=== PATIENT | male | born 1940 | race Caucasian/White ===

== ENCOUNTER 2020-09-27 11:22 | Inpatient (IN) ==
[2020-09-27] MEDS ORDERED: SODIUM CHLORIDE 0.9% 500 ML IV ONE (12:20)
[2020-09-27] MEDS ORDERED: ONDANSETRON INJ 2 MG/ML 2 ML VIAL IV STA (12:20)
[2020-09-27 12:27] LABS: Basophils # (auto) 0.03 K/uL (0-0.2); Basophils % (auto) 0.3 %; Eosinophils # (auto) 0.13 K/uL (0-0.5); Eosinophils % (auto) 1.1 %; Hematocrit (blood only) 36.5 % (42-52); Hemoglobin 12.1 g/dL (14.0-18.0); Immature Granulocytes # (auto) 0.02 K/uL (0.00-0.02); Immature Granulocytes % (auto) 0.2 %; Lymphocytes # (auto) 0.85 K/uL (1.2-3.4); Lymphocytes % (auto) 7.5 %; Mean Corpuscular Hemoglobin 31.6 pg (25-34); Mean Corpuscular Hgb Conc 33.2 g/dL (32-36); Mean Corpuscular Volume 95.3 fL (80-100); Mean Platelet Volume 10.9 fL (7.4-10.4); Monocytes # (auto) 0.88 K/uL (0.11-0.59); Monocytes % (auto) 7.8 %; Neutrophils # (auto) 9.44 K/uL (1.4-6.5); Neutrophils % (auto) 83.1 %; Platelet Count 312 K/uL (130-400); RDW Coefficient of Variation 13.8 % (11.5-14.5); Red Blood Count 3.83 M/uL (4.7-6.1); White Blood Count 11.35 K/uL (4.8-10.8)
[2020-09-27 12:36] LABS: Alanine Aminotransferase 20 U/L (12-78); Albumin Level 4.1 gm/dl (3.4-5.0); Aspartate Aminotransferase 17 U/L (15-37); Blood Urea Nitrogen 40 mg/dl (7-18); Carbon Dioxide 26 mmol/L (21-32); Chloride 108 mmol/L (98-107); Creatinine Clr Calc Pharmacy 34.3 ml/min; Est GFR (African American) 72.8 ml/min; Est GFR (Non-African American) 62.8 ml/min; Glucose 91 mg/dl (70-99); Lipase 154 U/L (73-393); Potassium 3.9 mmol/L (3.5-5.1); Sodium 145 mmol/L (136-145)
[2020-09-27 12:43] LABS: Alkaline Phosphatase 89 U/L (45-117); Creatine Kinase 68 U/L (39-308); Creatine Kinase MB < 1.0 ng/ml (0.5-3.6); Total Protein 8.1 gm/dl (6.4-8.2); Troponin I < 0.015 ng/ml (0-0.045)
[2020-09-27 13:02] LABS: Partial Thromboplastin Ratio 0.9; Partial Thromboplastin Time 23.5 Seconds (21.0-31.0)
--- NOTE | 2020-09-27 13:04 | XRay Report ---
XR femur RT 2V routine CLINICAL HISTORY: Right hip pain. COMPARISON: Pelvis and right hip radiographs July 07, 2020. FINDINGS: No acute fracture within the right femur is noted. There is no right knee joint effusion. There is no osseous lesion within the right femur. Mild to moderate osteoarthritis of the right hip i s present. IMPRESSION: 1. No acute fracture within the right femur. 2. Mild to moderate right hip osteoarthritis. ACT 112: Negative or not required by law. Electronically signed by: Thien Molina M.D. 09/27/2020 1:03 PM
--- NOTE | 2020-09-27 13:04 | XRay Report ---
XR chest 1V portable CLINICAL HISTORY: Chest Pain COMPARISON STUDY: No previous studies for comparison. FINDINGS: Lung volumes are normal. Lungs are clear. There is no pneumothorax or pleural effusion. Car diac size is normal. Mediastinal contours are normal. There is no evidence for pulmonary edema. Incid ental note is made of old bilateral clavicular fractures and multiple old right rib fractures. There are median sternotomy wires and mediastinal surgical clips. IMPRESSION: No acute cardiopulmonary findings. ACT 112: Negative or not required by law. Electronically signed by: Thien Molina M.D. 09/27/2020 1:03 PM
[2020-09-27] MEDS ORDERED: OPTIRAY 320 100ml IV ONE (13:12)
--- NOTE | 2020-09-27 13:35 | Electrocardiogram Report ---
Test Reason : Blood Pressure : / mmHG Vent. Rate : 089 BPM Atrial Rate : 089 BPM P-R Int : 170 ms QRS Dur : 128 ms QT Int : 386 ms P-R-T Axes : 061 -50 077 degrees QTc Int : 469 ms Normal sinus rhythm Right bundle branch block Left anterior fascicular block Bifascicular block Abnormal ECG No previous ECGs available Confirmed by Kushal Shelton ([id number]) on 09/27/2020 1:35:37 PM Referred By: REFERRED SELF Confirmed By:Kushal Shelton
--- NOTE | 2020-09-27 13:52 | CT Scan Report ---
CT OF THE HEAD WITHOUT CONTRAST CLINICAL HISTORY: Pt emesis COMPARISON STUDY: Head CT September 04, 2020. TECHNIQUE: Helical axial images of the head were obtained without IV contrast. Automated exposure con trol was utilized for the study. A dose lowering technique was utilized adhering to the principles o f ALARA. FINDINGS: No acute intracranial hemorrhage, midline shift or mass effect is present. Ventricular dila tation is unchanged since exam of September 02, 2020. This is likely due to atrophy. Basal cisterns are pa tent. There are nodular axial collections. White matter hypodensity suggests small vessel disease. A 1.2 cm hypodensity within left basal ganglia is unchanged. This could reflect a prominent perivascula r space or old lacunar infarct. The appearance of the brain is unchanged. There are no findings to horton ggest acute dural sinus thrombosis or acute territorial infarct. There are no significant calvarial a bnormalities. There is mild sinus mucosal thickening. IMPRESSION: 1. No acute intracranial findings. No change in appearance of the brain. 2. Stable ventricular dilatation. This is likely due to atrophy. Normal pressure hydrocephalus is con sidered less likely. ACT 112: Negative or not required by law. Electronically signed by: Thien Molina M.D. 09/27/2020 1:51 PM
--- NOTE | 2020-09-27 14:23 | CT Scan Report ---
CT OF THE ABDOMEN AND PELVIS WITH CONTRAST CLINICAL HISTORY: Pt emesis COMPARISON STUDY: None. TECHNIQUE: Following IV administration of 94 mL of Optiray, axial images of the abdomen and pelvis we re obtained from the lung bases to the proximal femurs. Images were reviewed in the axial, sagittal, and coronal planes. IV contrast was administered without complication. Automated exposure control wa s utilized for the study. A dose lowering technique was utilized adhering to the principles of ALARA . CT DOSE: 811.43 mGy.cm FINDINGS: Note is made of a small hiatal hernia. Visualized portions of the distal esophagus are flu id-filled. There is apparent wall thickening of the distal esophagus. This could be due to underdiste ntion. Exam is compromised by motion artifact. There is a possible mildly enlarged gastrohepatic liga ment lymph node that measures 1.5 cm. Multiple small hypodense hepatic lesions measure up to 1.1 cm. The spleen, adrenal glands and kidneys are unremarkable as is the pancreas. There is no biliary or pa ncreatic ductal dilatation. There is no hydronephrosis. There is extensive plaque of the abdominal ao rta. There is no evidence for a bowel obstruction. A moderate amount stool is noted within the colon and rectum. The appendix is normal. There is no pelvic lymphadenopathy. Note is made of old T12 and L 1 compression fractures. Note is made of serpiginous multifocal enhancement within the right gluteus medius muscle. The largest focus measures 4 cm. There is also a 1.2 cm enhancing focus within the lef t gluteal musculature. IMPRESSION: 1. Small hiatal hernia with fluid-filled distended distal esophagus. Possible wall thickening of the distal esophagus. GI consultation is recommended for consideration for endoscopy to exclude an underl chandler mucosal lesion. 2. Exam compromised by motion artifact however possible mildly enlarged gastrohepatic ligament lymph node. In addition, multiple small indeterminate hepatic lesions. These findings are nonspecific babcock katherine are suspicious if distal esophageal lesion identified on endoscopy. 3. Multifocal enhancement within the bilateral gluteal musculature, as described above. These finding s are entirely nonspecific and could be neoplastic. A short-term follow-up CT of the pelvis with cont rast in one month is recommended. ACT 112: Positive. There are findings on this exam that require communication between the performing entity and the patient following Patient Test Result Information Act ([place] Act 112) guidelines. Electronically signed by: Thien Molina M.D. 09/27/2020 2:22 PM
[2020-09-27] MEDS ORDERED: METOCLOPRAMIDE HCL INJ 5 MG/ML 2 ML VIAL IV STA (14:59)
[2020-09-27] MEDS ORDERED: NITROGLYCERIN 2% OINTMENT 30GM TUBE EXT STA (14:59)
[2020-09-27] MEDS ORDERED: GLUCAGON 1 MG in SYRINGE 0 ML IV ONE (14:59)
[2020-09-27] MEDS ORDERED: GLUCAGON FOR INJ 1 MG VIAL IV STA (15:53)
--- NOTE | 2020-09-27 15:59 | History & Physical Report ---
Date of Service September 27, 2020 Assessment & Plan (1) Esophageal dysmotility: Plan: Patient has inability to take p.o. at home. CT scan shows esophagus full of food. Medical attempts to promote any disimpaction were unsuccessful including glucagon. GI medicine was consulted recommends have the patient admitted kept n.p.o. with likely endoscopy on 09/28/2020. IV fluids and intravenous proton pump inhibitor (2) Dementia: Plan: Patient typically takes memantine, will be npo offering prn zyprexa (3) Prostate cancer: Plan: extent is unknown, there is some comment on CT of gluteal muscle ? mass, (4) GERD (gastroesophageal reflux disease): Plan: Recently changed from omeprazole to pantoprazole this likely may explain some of the findings on CT scan however mucosal mass cannot be ruled out subsequently endoscopy be undertaken (5) CAD (coronary artery disease): Plan: Patiently typically takes aspirin metoprolol and atorvastatin (6) DVT prophylaxis: Plan: SCDs for DVT prevention History of Present Illness Primary Care Provider: Jonathon Jain, DO 80 M with dementia, lives with daughter, has been with increased lethargy and decreased po intake, in the ER CT chest finds fluid/food filled esophagus with concern for possible esophageal thickening, there is also comments on the CT scan of a possible mildly enlarged gastrohepatic ligament lymph node that measures 1.5 cm. Multiple small hypodense hepatic lesions measure up to 1.1 cm. The spleen, adrenal glands and kidneys are unremarkable as is the pancreas. There is no biliary or pancreatic ductal dilatation. There is no hydronephrosis. Note is made of serpiginous multifocal enhancement within the right gluteus medius muscle. The largest focus measures 4 cm. There is also a 1.2 cm enhancing focus within the left gluteal musculature. The pts daughter notes he had prostate cancer some years ago, but thinks it s all taken care of, he has been having right hip pain, which may correlate with mass Allergies Allergy/AdvReac Type Severity Reaction Status Date / Time No Known Allergies Allergy Verified 09/27/20 14:29 Home Medications Medication Instructions Recorded Confirmed Type aspirin 81 mg chewable tablet 81 mg PO PM 07/02/20 09/27/20 History atorvastatin 40 mg tablet 40 mg PO PM 07/02/20 09/27/20 History metoprolol tartrate 25 mg tablet 25 mg PO PM 07/02/20 09/27/20 History memantine 5 mg tablet 5 mg PO BID 09/24/20 09/27/20 History pantoprazole 40 mg tablet,delayed 40 mg PO QAM 09/27/20 09/27/20 History release Past Med/Surg History Medical History CAD (coronary artery disease) GERD (gastroesophageal reflux disease) Glaucoma Hypercholesteremia Prostate cancer Surgical History History of quadruple bypass Family History Denies family history of Ovarian cancer Prostate cancer Myocardial infarction Breast cancer Colorectal cancer Social History Smoking Status: Never smoker Second Hand Exposure: Yes; Hx Alcohol Use: Yes Alcohol type: beer Alcohol Intake Frequency: Monthly or Less Hx Substance Use: No Preferred Language: Lithuanian Communication Ability: Effective Visual Impairment: No Limitations Hearing Ability: Normal 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 marital status: / Current Living Situation: Family current occupational status: retired How many Children do You have: 3 Feels Safe at Home: Yes Childhood Exposure to Second-Hand Smoke: Yes caffeine: Yes during the past year weight has: remained stable Dental Care, Regularly: No Physical Activity Frequency: 5-6 Times per Week Seatbelt Use: sometimes Sunscreen Use: No Assistive Devices: Denture - Upper, Denture - Lower and Glasses Review of Systems Review of Systems: Mild distress and fatigue no headache, no visual changes no speech or swallowing issues no chest pain, pressure or palpitations no shortness of breath, cough or wheezes no abdominal pain, nausea or vomiting, diarrhea or constipation no dysuria, hematuria or frequency right hip pain has been issue, non radiating no back pain, CVA tenderness or radicular pain no bruising, bleeding or rashes no focal signs of weakness or numbness or altered sensation no complaints of anxiety or depression.. Physical Exam Physical Exam: The patient appeared well nourished and normally developed. he is demented Vital signs as documented. Head exam is normocephalic atraumatic Neck is without JVD, thyromegaly, or carotid bruits. Lungs are clear to auscultation, no focal loss of breath sounds Cardiac exam, Rhythm is regular.. No murmurs, rubs or gallops. Abdominal exam reveals normal bowel sounds, soft non tender, no masses Extremities are nonedematous and both pedal pulses are present there is no mass able to be palpated to correlate with Ct findings Neurologic exam is alert and oriented, no focal loss of strength or sensation Skin is without bruises or rashes Psychologically is without concerns for anxiety or depression Results & Data Results & Data ([facility] [place]) Vital Signs (Past 12 Hours) Vital Signs Temp Pulse Pulse Resp BP BP Pulse Ox 09/27/20 11:52 82 20 141/81 H 99 09/27/20 11:50 63 15 141/81 H 99 09/27/20 11:23 97.7 F 106 H 20 129/76 93 Diagnostic Findings Abdomen/Pelvis CT 09/27/20 12:19 CT OF THE ABDOMEN AND PELVIS WITH CONTRAST CLINICAL HISTORY: Pt emesis COMPARISON STUDY: None. TECHNIQUE: Following IV administration of 94 mL of Optiray, axial images of the abdomen and pelvis were obtained from the lung bases to the proximal femurs. Images were reviewed in the axial, sagittal, and coronal planes. IV contrast was administered without complication. Automated exposure control was utilized for the study. A dose lowering technique was utilized adhering to the principles of ALARA. CT DOSE: 811.43 mGy.cm FINDINGS: Note is made of a small hiatal hernia. Visualized portions of the distal esophagus are fluid-filled. There is apparent wall thickening of the distal esophagus. This could be due to underdistention. Exam is compromised by motion artifact. There is a possible mildly enlarged gastrohepatic ligament lymph node that measures 1.5 cm. Multiple small hypodense hepatic lesions measure up to 1.1 cm. The spleen, adrenal glands and kidneys are unremarkable as is the pancreas. There is no biliary or pancreatic ductal dilatation. There is no hydronephrosis. There is extensive plaque of the abdominal aorta. There is no evidence for a bowel obstruction. A moderate amount stool is noted within the colon and rectum. The appendix is normal. There is no pelvic lymphadenopathy. Note is made of old T12 and L1 compression fractures. Note is made of serpiginous multifocal enhancement within the right gluteus medius muscle. The largest focus measures 4 cm. There is also a 1.2 cm enhancing focus within the left gluteal musculature. IMPRESSION: 1. Small hiatal hernia with fluid-filled distended distal esophagus. Possible wall thickening of the distal esophagus. GI consultation is recommended for consideration for endoscopy to exclude an underlying mucosal lesion. 2. Exam compromised by motion artifact however possible mildly enlarged gastrohepatic ligament lymph node. In addition, multiple small indeterminate hepatic lesions. These findings are nonspecific however are suspicious if distal esophageal lesion identified on endoscopy. 3. Multifocal enhancement within the bilateral gluteal musculature, as described above. These findings are entirely nonspecific and could be neoplastic. A short- term follow-up CT of the pelvis with contrast in one month is recommended. ACT 112: Positive. There are findings on this exam that require communication between the performing entity and the patient following Patient Test Result Information Act ([place] Act 112) guidelines. Electronically signed by: Thien Molina M.D. 09/27/2020 2:22 PM Chest X-Ray 09/27/20 12:19 XR chest 1V portable CLINICAL HISTORY: Chest Pain COMPARISON STUDY: No previous studies for comparison. FINDINGS: Lung volumes are normal. Lungs are clear. There is no pneumothorax or pleural effusion. Cardiac size is normal. Mediastinal contours are normal. There is no evidence for pulmonary edema. Incidental note is made of old bilateral clavicular fractures and multiple old right rib fractures. There are median sternotomy wires and mediastinal surgical clips. IMPRESSION: No acute cardiopulmonary findings. ACT 112: Negative or not required by law. Electronically signed by: Thien Molina M.D. 09/27/2020 1:[address] 09/27/20 12:19 CT OF THE HEAD WITHOUT CONTRAST CLINICAL HISTORY: Pt emesis COMPARISON STUDY: Head CT September 04, 2020. TECHNIQUE: Helical axial images of the head were obtained without IV contrast. Automated exposure control was utilized for the study. A dose lowering technique was utilized adhering to the principles of ALARA. FINDINGS: No acute intracranial hemorrhage, midline shift or mass effect is present. Ventricular dilatation is unchanged since exam of September 02, 2020. This is likely due to atrophy. Basal cisterns are patent. There are nodular axial collections. White matter hypodensity suggests small vessel disease. A 1.2 cm hypodensity within left basal ganglia is unchanged. This could reflect a prominent perivascular space or old lacunar infarct. The appearance of the brain is unchanged. There are no findings to suggest acute dural sinus thrombosis or acute territorial infarct. There are no significant calvarial abnormalities. There is mild sinus mucosal thickening. IMPRESSION: 1. No acute intracranial findings. No change in appearance of the brain. 2. Stable ventricular dilatation. This is likely due to atrophy. Normal pressure hydrocephalus is considered less likely. ACT 112: Negative or not required by law. Electronically signed by: Thien Molina M.D. 09/27/2020 1:51 PM Femur X-Ray 09/27/20 12:43 XR femur RT 2V routine CLINICAL HISTORY: Right hip pain. COMPARISON: Pelvis and right hip radiographs July 07, 2020. FINDINGS: No acute fracture within the right femur is noted. There is no right knee joint effusion. There is no osseous lesion within the right femur. Mild to moderate osteoarthritis of the right hip is present. IMPRESSION: 1. No acute fracture within the right femur. 2. Mild to moderate right hip osteoarthritis. ACT 112: Negative or not required by law. Electronically signed by: Thien Molina M.D. 09/27/2020 1:03 PM ECG Additional Comments: EKG shows normal sinus rhythm right bundle branch block Code Status & VTE Plan VTE Prophylaxis Plan VTE Prophylaxis will be ordered: Yes PG Care Time/CCT Total # of Minutes Spent Total Time Spent with Patient: Total time spent is greater than 50% in coordination of care (as documented) at patient's floor/unit and/or counseling patient: Coding Level of Care Code 17850 Initial Inpt Care Lvl 2 Diagnoses Dementia F03.90 Prostate cancer C61 GERD (gastroesophageal reflux disease) K21.9 CAD (coronary artery disease) I25.10 Esophageal dysmotility K22.4 DVT prophylaxis Z29.9
[2020-09-27] MEDS ORDERED: LORazepam 0.5 MG/1 ML VIAL IV PRN (16:01)
[2020-09-27] MEDS ORDERED: hydrALAZINE HCL 20 MG/ML VIAL IV PRN (16:01)
[2020-09-27] MEDS ORDERED: ONDANSETRON INJ 2 MG/ML 2 ML VIAL IV PRN (16:02)
[2020-09-27] MEDS ORDERED: OLANZapine ZYDIS 5 MG ORALLY DIS. TAB PO PRN (16:02)
--- NOTE | 2020-09-27 19:05 | Emergency Department Note ---
Impression & Plan Esophageal dysmotility, Dementia, Acute hip pain ED Provider Note NAME: TIM GREGORIO AGE: 80 SEX: M : 1940 ARRIVES VIA: Walk-In INFORMANT: Patient, gleason gear generator ED PROVIDER(S): Kavon Rodriguez MD CHIEF COMPLAINT: vomiting, hip pain HPI: This is a 80-year-old male brought in by his gleason gear generator. The patient's care gleason gear generator is his step granddaughter. She reports that the patient has a history of dementia and has been increasingly difficult to take care of. She reports over the last several days the patient has been unable to keep anything down including fluids or any food. The patient immediately vomits it back up. He has also not been able to keep down any of his medications. In addition to this the patient will not stop walking and [place] police. The patient himself has no complaints however does not know where he is and does not know the month. Patient reports his hip pain is made worse with walking however rest makes the hip better. ROS: See above HPI for pertinent positives & negatives. A total of 10 systems reviewed and were otherwise negative. PAST MEDICAL HISTORY: See Below PAST SURGICAL HISTORY: See Below FAMILY HISTORY: See Below SOCIAL HISTORY: See Below HOME MEDICATIONS: See Below ALLERGIES: See Below VITALS: See Below PHYSICAL EXAMINATION: VITAL SIGNS - Vital signs and nursing notes were reviewed. GENERAL - 80-year-old male appearing stated age who is in no acute distress. C ommunicates well with provider and answers questions appropriately. SKIN - Without rashes. HEAD - NC/AT. EYES - PERRL with EOMI bilaterally. Sclera anicteric. Palpebral conjunctiva pink and moist with no injection noted. EARS - No deformities of external structures noted on gross examination marcella aterally. NOSE - Midline and without cyanosis. No epistaxis or purulent drainage noted. Septum midline without deviation or septal hematoma noted. MOUTH/OROPHARYNX - Without perioral cyanosis. Buccal mucosa pink and moist and without leukoplakia. Tongue midline with equal elevation of palate bilaterally. No tonsillar hypertrophy, erythema, or exudates noted. NECK - Neck with FROM. Supple to palpation. LUNGS - Chest wall symmetric without accessory muscle use, intercostals retractions, or central cyanosis. Normal vesicular breath sounds CTA B/L. No wheezes, rales, or rhonchi appreciated. CARDIAC - RRR with S1/S2. No murmur, rubs, or gallops appreciated. ABDOMEN - Abdominal contour without pulsations or visible masses. BS normoactive all four quadrants. No tenderness, palpable masses, hepatosplenomegaly, or ascites noted. EXTREMITIES - No clubbing or peripheral cyanosis. No pretibial edema present. +3/5 radial, posterior tibial, and dorsalis pedis pulses palpated throughout. +5/5 strength noted in UE/LE bilaterally. NEUROLOGIC - Cranial nerves II through XII grossly intact. Sensory intact to light touch throughout. Patellar reflexes +2/4. PSYCH - A&Ox3 and cooperates fully with examiner. Pt is very pleasant and interacts well with examiner. MEDICAL DECISION MAKING: Patient was seen and evaluated as above in room B4. Review was performed of nursing notes and vital signs. I did review pertinent previous visits and patient history. After obtaining a thorough history and physical examination the above work up was performed. This 80-year-old male who presents emergency department complaining of vomiting up his own saliva. Patient using shared medical decision making the decision was made to send the patient for CAT scan of the head as well as abdomen pelvis. The CAT scan of the abdomen pelvis is concerning for a fluid-filled esophagus. Based on this the patient was given IV glucagon Nitropaste as well as Reglan and Valium. I did discuss the case with gastroenterology who asked that the patient be admitted to the medicine service. The patient does have a slight elevation in his white blood cell count however his BUN and creatinine appear to be at the baseline. While in the department, I personally reevaluated the patient several times and each time the patient was found to be resting comfortably. The patient was educated upon management, educated upon todays findings/results, educated upon importance of follow up from today's visit, educated upon symptoms in which to return, had questions answered prior to discharge, verbalized understanding, and was discharged home in good condition. An order was placed for continuous cardiac monitoring. The monitor shows a rate of 62 with Normal SInus rhythm. The patient was evaluated during a period of high volume and high acuity during the global COVID-19 pandemic, and that diagnosis was suspected/considered upon their initial presentation. Their evaluation, treatment and testing was consistent with current guidelines for patients who present with complaints or symptoms that may be related to COVID-19. Patient was seen while provider was wearing PPE. Triage Nursing notes reviewed. Prior medical records reviewed Vital Signs: reviewed and remarkable for no significant abnormalities Differential diagnosis: Appendicitis, testicular torsion, infections, diverticulitis, UTI, obstruction, mesenteric ischemia, aortic pathology, inflammatory bowel disease, renal colic, PUD, pancreatitis, biliary pathology, hernia, volvulus, constipation, as well as other pathologies. ER treatment provided: See below Diagnostics interpreted by me: ECG: EKG shows a normal sinus rhythm right bundle branch block bifascicular block QTC is 469 ventricular rate is 89 no previous EKG to compare to Laboratory studies: As stated above and show below. Imaging studies: See below Consultation(s): GI Internal Medicine Past Med/Surg History Medical History CAD (coronary artery disease) GERD (gastroesophageal reflux disease) Glaucoma Hypercholesteremia Prostate cancer Surgical History History of quadruple bypass Family History Denies family history of Ovarian cancer Prostate cancer Myocardial infarction Breast cancer Colorectal cancer Social History Smoking Status: Never smoker Second Hand Exposure: No; Hx Alcohol Use: Yes (occ) Alcohol type: beer Alcohol Intake Frequency: Monthly or Less Hx Substance Use: No Preferred Language: Uzbek Communication Ability: Effective Visual Impairment: No Limitations Hearing Ability: Normal Trace Clerk Required: No Beliefs That Will Affect Care: None marital status: / Current Living Situation: Family current occupational status: retired How many Children do You have: 3 Feels Safe at Home: Yes Childhood Exposure to Second-Hand Smoke: Yes caffeine: Yes during the past year weight has: remained stable Dental Care, Regularly: No Physical Activity Frequency: 5-6 Times per Week Seatbelt Use: sometimes Sunscreen Use: No Assistive Devices: Denture - Upper and Denture - Lower Allergies Allergies Allergy/AdvReac Type Severity Reaction Status Date / Time No Known Allergies Allergy Verified 09/27/20 14:29 Home Meds Home Medications Medication Instructions Recorded Confirmed aspirin 81 mg chewable tablet 81 mg PO PM 07/02/20 09/27/20 atorvastatin 40 mg tablet 40 mg PO PM 07/02/20 09/27/20 metoprolol tartrate 25 mg tablet 25 mg PO PM 07/02/20 09/27/20 memantine 5 mg tablet 5 mg PO BID 09/24/20 09/27/20 pantoprazole 40 mg tablet,delayed 40 mg PO QAM 09/27/20 09/27/20 release Results & Data (ED) Vital Signs Vital Signs - 24 hr 09/27/20 11:23 09/27/20 11:50 09/27/20 11:52 Temperature 36.5 C Temperature Source Temporal Artery Scan Pulse Rate 106 H 63 Pulse Rate [Right Radial] 82 Pulse Rate from SpO2 Sensor 62 Pulse Rhythm [Right Radial] Regular Pulse Strength [Right Radial] Normal Respiratory Rate 20 15 20 Respiratory Effort / Characteristics Non-Labored Spontaneous Non-Labored Spontaneous Respiratory Depth Normal Normal Respiratory Pattern Regular Regular Blood Pressure 129/76 141/81 H Blood Pressure [Right Arm] 141/81 H Blood Pressure Mean 93 101 Blood Pressure Mean [Right Arm] 101 Blood Pressure Position [Right Arm] Sitting Pulse Oximetry 93 99 99 Oxygen Delivery Method Room Air Room Air Sepsis Recent Fever Within 48 Hours No Sepsis New/Unexplained Change in Mental Status No Sepsis Action Taken by Nursing No Action Required Home Medications Current Medication List: was personally reviewed by me Laboratory Data Attestation: I reviewed the patient's lab results. Result diagrams: 09/27/20 11:50 09/27/20 11:50 Lab Results 09/27/20 09/27/20 09/27/20 Range/Units 11:50 11:50 12:35 WBC 11.35 H (4.8-10.8) K/uL RBC 3.83 L (4.7-6.1) M/uL Hgb 12.1 L (14.0-18.0) g/dL Hct 36.5 L (42-52) % MCV 95.3 (80-100) fL MCH 31.6 (25-34) pg MCHC 33.2 (32-36) g/dL RDW Std Deviation 48.0 H (36.4-46.3) fL RDW Coeff of Owen 13.8 (11.5-14.5) % Plt Count 312 (130-400) K/uL MPV 10.9 H (7.4-10.4) fL Immature Gran % (Auto) 0.2 % Neut % (Auto) 83.1 % Lymph % (Auto) 7.5 % Glynn % (Auto) 7.8 % Eos % (Auto) 1.1 % Baso % (Auto) 0.3 % Neut # (Auto) 9.44 H (1.4-6.5) K/uL Lymph # (Auto) 0.85 L (1.2-3.4) K/uL Glynn # (Auto) 0.88 H (0.11-0.59) K/uL Eos # (Auto) 0.13 (0-0.5) K/uL Baso # (Auto) 0.03 (0-0.2) K/uL Immature Gran # (Auto) 0.02 (0.00-0.02) K/uL APTT 23.5 (21.0-31.0) Seconds PTT Ratio 0.9 Sodium 145 (136-145) mmol/L Potassium 3.9 (3.5-5.1) mmol/L Chloride 108 H (98-107) mmol/L Carbon Dioxide 26 (21-32) mmol/L Anion Gap 11.0 (3-11) BUN 40 H (7-18) mg/dl Creatinine 1.11 (0.6-1.4) mg/dl Est Cr Clr Drug Dosing 34.3 ml/min Est GFR ( Amer) 72.8 ml/min Est GFR (Non-Af Amer) 62.8 ml/min BUN/Creatinine Ratio 36.0 H (10-20) Glucose 91 (70-99) mg/dl Calcium 10.0 (8.5-10.1) mg/dl Total Bilirubin 1.0 (0.2-1) mg/dl AST 17 (15-37) U/L ALT 20 (12-78) U/L Alkaline Phosphatase 89 (45-117) U/L Total Creatine Kinase 68 (39-308) U/L CK-MB (CK-2) < 1.0 (0.5-3.6) ng/ml CK/CKMB % Calc TNP Troponin I < 0.015 (0-0.045) ng/ml Total Protein 8.1 (6.4-8.2) gm/dl Albumin 4.1 (3.4-5.0) gm/dl Globulin 4.0 (2.5-4.0) gm/dl Albumin/Globulin Ratio 1.0 (0.9-2) Lipase 154 (73-393) U/L COVID-19 Eval Order SARS-CoV-2 (PCR) (Negative) 09/27/20 09/27/20 Range/Units 13:40 13:40 WBC (4.8-10.8) K/uL RBC (4.7-6.1) M/uL Hgb (14.0-18.0) g/dL Hct (42-52) % MCV (80-100) fL MCH (25-34) pg MCHC (32-36) g/dL RDW Std Deviation (36.4-46.3) fL RDW Coeff of Owen (11.5-14.5) % Plt Count (130-400) K/uL MPV (7.4-10.4) fL Immature Gran % (Auto) % Neut % (Auto) % Lymph % (Auto) % Glynn % (Auto) % Eos % (Auto) % Baso % (Auto) % Neut # (Auto) (1.4-6.5) K/uL Lymph # (Auto) (1.2-3.4) K/uL Glynn # (Auto) (0.11-0.59) K/uL Eos # (Auto) (0-0.5) K/uL Baso # (Auto) (0-0.2) K/uL Immature Gran # (Auto) (0.00-0.02) K/uL APTT (21.0-31.0) Seconds PTT Ratio Sodium (136-145) mmol/L Potassium (3.5-5.1) mmol/L Chloride (98-107) mmol/L Carbon Dioxide (21-32) mmol/L Anion Gap (3-11) BUN (7-18) mg/dl Creatinine (0.6-1.4) mg/dl Est Cr Clr Drug Dosing ml/min Est GFR ( Amer) ml/min Est GFR (Non-Af Amer) ml/min BUN/Creatinine Ratio (10-20) Glucose (70-99) mg/dl Calcium (8.5-10.1) mg/dl Total Bilirubin (0.2-1) mg/dl AST (15-37) U/L ALT (12-78) U/L Alkaline Phosphatase (45-117) U/L Total Creatine Kinase (39-308) U/L CK-MB (CK-2) (0.5-3.6) ng/ml CK/CKMB % Calc Troponin I (0-0.045) ng/ml Total Protein (6.4-8.2) gm/dl Albumin (3.4-5.0) gm/dl Globulin (2.5-4.0) gm/dl Albumin/Globulin Ratio (0.9-2) Lipase (73-393) U/L COVID-19 Eval Order Covid19 at [facility] SARS-CoV-2 (PCR) NEGATIVE (Negative) Administered Medications Lactated Ringer's (Lr) 1,000 mls @ 80 mls/hr IV .[id number] ITALIA Stop: 10/27/20 17:55 Last Admin: 09/27/20 20:02 Dose: 80 mls/hr Documented by: [id number] Discontinued Medications Diazepam (Diazepam 5 Mg/Ml Inj 10ml Vial) 2.5 mg IV NOW STA Stop: 09/27/20 15:00 Last Admin: 09/27/20 15:37 Dose: 2.5 mg Documented by: [id number] Glucagon (Glucagon For Inj 1 Mg Vial) 1 mg IV NOW STA Stop: 09/27/20 15:54 Last Admin: 09/27/20 16:37 Dose: 1 mg Documented by: [id number] Sodium Chloride (Nss) 500 mls @ 999 mls/hr IV .Q31M ONE Stop: 09/27/20 12:50 Last Infusion: 09/27/20 16:37 Dose: 0 mls/hr Documented by: [id number] Admin: 09/27/20 12:39 Dose: 999 mls/hr Documented by: [id number] Ioversol (Optiray 320 100ml) 94 ml IV ONCE ONE Stop: 09/27/20 13:13 Last Admin: 09/27/20 13:12 Dose: 94 ml Documented by: [id number] Metoclopramide HCl (Metoclopramide Hcl Inj 5 Mg/Ml 2 Ml Vial) 10 mg IV NOW STA Stop: 09/27/20 15:00 Last Admin: 09/27/20 15:35 Dose: 10 mg Documented by: [id number] Nitroglycerin (Nitroglycerin 2% Ointment 30gm Tube) 1 inch EXT NOW STA Stop: 09/27/20 15:00 Last Admin: 09/27/20 15:34 Dose: 1 inch Documented by: [id number] Ondansetron HCl (Ondansetron Inj 2 Mg/Ml 2 Ml Vial) 4 mg IV NOW STA Stop: 09/27/20 12:21 Last Admin: 09/27/20 12:40 Dose: 4 mg Documented by: [id number] Imaging Data Radiologist's Impression: Abdomen/Pelvis CT 09/27/20 12:19 CT OF THE ABDOMEN AND PELVIS WITH CONTRAST CLINICAL HISTORY: Pt emesis COMPARISON STUDY: None. TECHNIQUE: Following IV administration of 94 mL of Optiray, axial images of the abdomen and pelvis were obtained from the lung bases to the proximal femurs. Images were reviewed in the axial, sagittal, and coronal planes. IV contrast was administered without complication. Automated exposure control was utilized for the study. A dose lowering technique was utilized adhering to the principles of ALARA. CT DOSE: 811.43 mGy.cm FINDINGS: Note is made of a small hiatal hernia. Visualized portions of the distal esophagus are fluid-filled. There is apparent wall thickening of the distal esophagus. This could be due to underdistention. Exam is compromised by motion artifact. There is a possible mildly enlarged gastrohepatic ligament lymph node that measures 1.5 cm. Multiple small hypodense hepatic lesions measure up to 1.1 cm. The spleen, adrenal glands and kidneys are unremarkable as is the pancreas. There is no biliary or pancreatic ductal dilatation. There is no hydronephrosis. There is extensive plaque of the abdominal aorta. There is no evidence for a bowel obstruction. A moderate amount stool is noted within the colon and rectum. The appendix is normal. There is no pelvic lymphadenopathy. Note is made of old T12 and L1 compression fractures. Note is made of serpiginous multifocal enhancement within the right gluteus medius muscle. The largest focus measures 4 cm. There is also a 1.2 cm enhancing focus within the left gluteal musculature. IMPRESSION: 1. Small hiatal hernia with fluid-filled distended distal esophagus. Possible wall thickening of the distal esophagus. GI consultation is recommended for consideration for endoscopy to exclude an underlying mucosal lesion. 2. Exam compromised by motion artifact however possible mildly enlarged gastrohepatic ligament lymph node. In addition, multiple small indeterminate hepatic lesions. These findings are nonspecific however are suspicious if distal esophageal lesion identified on endoscopy. 3. Multifocal enhancement within the bilateral gluteal musculature, as described above. These findings are entirely nonspecific and could be neoplastic. A short- term follow-up CT of the pelvis with contrast in one month is recommended. ACT 112: Positive. There are findings on this exam that require communication between the performing entity and the patient following Patient Test Result Information Act ([place] Act 112) guidelines. Electronically signed by: Thien Molina M.D. 09/27/2020 2:22 PM Chest X-Ray 09/27/20 12:19 XR chest 1V portable CLINICAL HISTORY: Chest Pain COMPARISON STUDY: No previous studies for comparison. FINDINGS: Lung volumes are normal. Lungs are clear. There is no pneumothorax or pleural effusion. Cardiac size is normal. Mediastinal contours are normal. There is no evidence for pulmonary edema. Incidental note is made of old bilateral clavicular fractures and multiple old right rib fractures. There are median sternotomy wires and mediastinal surgical clips. IMPRESSION: No acute cardiopulmonary findings. ACT 112: Negative or not required by law. Electronically signed by: Thien Molina M.D. 09/27/2020 1:[address] 09/27/20 12:19 CT OF THE HEAD WITHOUT CONTRAST CLINICAL HISTORY: Pt emesis COMPARISON STUDY: Head CT September 04, 2020. TECHNIQUE: Helical axial images of the head were obtained without IV contrast. Automated exposure control was utilized for the study. A dose lowering technique was utilized adhering to the principles of ALARA. FINDINGS: No acute intracranial hemorrhage, midline shift or mass effect is present. Ventricular dilatation is unchanged since exam of September 02, 2020. This is likely due to atrophy. Basal cisterns are patent. There are nodular axial collections. White matter hypodensity suggests small vessel disease. A 1.2 cm hypodensity within left basal ganglia is unchanged. This could reflect a prominent perivascular space or old lacunar infarct. The appearance of the brain is unchanged. There are no findings to suggest acute dural sinus thrombosis or acute territorial infarct. There are no significant calvarial abnormalities. There is mild sinus mucosal thickening. IMPRESSION: 1. No acute intracranial findings. No change in appearance of the brain. 2. Stable ventricular dilatation. This is likely due to atrophy. Normal pressure hydrocephalus is considered less likely. ACT 112: Negative or not required by law. Electronically signed by: Thien Molina M.D. 09/27/2020 1:51 PM Femur X-Ray 09/27/20 12:43 XR femur RT 2V routine CLINICAL HISTORY: Right hip pain. COMPARISON: Pelvis and right hip radiographs July 07, 2020. FINDINGS: No acute fracture within the right femur is noted. There is no right knee joint effusion. There is no osseous lesion within the right femur. Mild to moderate osteoarthritis of the right hip is present. IMPRESSION: 1. No acute fracture within the right femur. 2. Mild to moderate right hip osteoarthritis. ACT 112: Negative or not required by law. Electronically signed by: Thien Molina M.D. 09/27/2020 1:03 PM Discharge Plan Visit Data Chief Complaint: Vomiting Stated Complaint: VOMITING ED Provider: Kavon Rodriguez Discharge Problem: Esophageal dysmotility, Dementia, Acute hip pain Patient Disposition: Admitted As Inpatient Discharge Instructions Interventions: ED Discharge Assessment Last Done: 09/27/20 17:15 Discharge Problem: Dementia Qualifiers: Dementia type: unspecified type Dementia behavioral disturbance: without behavioral disturbance Qualified Code(s): F03.90 - Unspecified dementia without behavioral disturbance Acute hip pain Qualifiers: Laterality: right Qualified Code(s): M25.551 - Pain in right hip
[2020-09-27] MEDS: LACTATED RINGER'S 1,000 ML IV SCH (20:02)
[2020-09-27 21:40] LABS: Appearance Urine Clear (Clear); Bilirubin Urine Negative (Negative); Blood Urine Negative (Negative); Color Urine Yellow; Glucose Urine UA Negative (Negative); Ketones Urine 4+ (Negative); Leukocyte Esterase Urine Negative (Negative); Nitrite Urine Negative (Negative); Protein Urine Negative (Negative); Specific Gravity Urine > 1.045 (1.000-1.030); Urobilinogen Urine Negative (Negative)
[2020-09-27] MEDS: PANTOprazole 40 MG in SYRINGE 0 ML IV SCH (22:01)
[2020-09-27] MEDS: ACETAMINOPHEN 1000 MG/100 ML IV IV PRN (22:05)
[2020-09-28] MEDS: PANTOprazole 40 MG in SYRINGE 0 ML IV SCH ×2 (08:08→20:10)
[2020-09-28] MEDS: LACTATED RINGER'S 1,000 ML IV SCH ×2 (08:08→20:11)
[2020-09-28 08:15] LABS: Hematocrit (blood only) 32.9 % (42-52); Hemoglobin 10.7 g/dL (14.0-18.0); Mean Corpuscular Hemoglobin 31.7 pg (25-34); Mean Corpuscular Hgb Conc 32.5 g/dL (32-36); Mean Corpuscular Volume 97.3 fL (80-100); Mean Platelet Volume 10.8 fL (7.4-10.4); Platelet Count 276 K/uL (130-400); RDW Coefficient of Variation 13.9 % (11.5-14.5); RDW Standard Deviation 49.7 fL (36.4-46.3); Red Blood Count 3.38 M/uL (4.7-6.1)
[2020-09-28 08:48] LABS: BUN Creatinine Ratio 33.9 (10-20); Calcium 9.2 mg/dl (8.5-10.1); Creatinine Clr Calc Pharmacy 42.7 ml/min; Est GFR (African American) 94.3 ml/min; Est GFR (Non-African American) 81.3 ml/min; Potassium 3.7 mmol/L (3.5-5.1)
--- NOTE | 2020-09-28 09:16 | History & Physical Bridge Note ---
Date of Service September 28, 2020 History & Physical Bridge Note I have examined the patient, reviewed the History & Physical and in the interval since the performance of the History & Physical I have noted the following changes of clinical significance: no changes noted: Patient denies any vomiting. No abdominal pain. PE: A&Ox3. RRR. Lungs CTA bilaterally. Abdomen soft, nontender. Normal bowel sounds. A/P: Patient with GERD admitted with abnormal CT imaging suggestive of food bolus and possible esophageal mass. * NPO. * For EGD today with Dr. Burns. * Further Reccs pending results of testing.
--- NOTE | 2020-09-28 09:45 | Gastrointestinal Consultation ---
Date of Consultation September 28, 2020 Assessment & Plan (1) GERD (gastroesophageal reflux disease): (2) Abnormal CT of the abdomen: Ddx: Stenosis vs Zenkers vs HH vs achalasia vs mass vs other. * NPO for now. * EGD today for further evaluation. * Further reccs pending results of testing. Supervising Physician Co-Signing Physician Notes I personally evaluated the patient and agree with the findings as documented by NEMO Ybarra Exam: abd: soft, nt, nd Proceed with EGD. risks/benefits and procedure discussed with patient, who agrees to proceed History of Present Illness Reason for Consultation: Abnormal CT scan Requesting Physician: Dr. Tidwell Attending Physician: Christian Tidwell MD History of Present Illness Patient is a 80 y.o. male recently evaluated in the office for symptoms of refractory GERD while on Omeprazole requiring numerous antacids for treatment. He was reporting dyspeptic symptoms but no overt dysphagia. Due to this, after discussion it was determined that he would start a 6 week PPI trial on Pantoprazole with plan for EGD in 6 weeks if no improvement. Prior to this time, however, he began to have difficulty taking PO. Due to this, he presented to the ER for further evaluation. During his admission, he was found to have an abnormal CT with a fluid filled esophagus and possible esophageal mass. He has been placed NPO for EGD today. Allergies Allergy/AdvReac Type Severity Reaction Status Date / Time No Known Allergies Allergy Verified 09/27/20 14:29 Home Medications Medication Instructions Recorded Confirmed Type aspirin 81 mg chewable tablet 81 mg PO PM 07/02/20 09/27/20 History atorvastatin 40 mg tablet 40 mg PO PM 07/02/20 09/27/20 History metoprolol tartrate 25 mg tablet 25 mg PO PM 07/02/20 09/27/20 History memantine 5 mg tablet 5 mg PO BID 09/24/20 09/27/20 History pantoprazole 40 mg tablet,delayed 40 mg PO QAM 09/27/20 09/27/20 History release Patient History Medical History CAD (coronary artery disease) GERD (gastroesophageal reflux disease) Glaucoma Hypercholesteremia Prostate cancer Surgical History History of quadruple bypass Family History Denies family history of Ovarian cancer Prostate cancer Myocardial infarction Breast cancer Colorectal cancer Social History Smoking Status: Never smoker Second Hand Exposure: No; Hx Alcohol Use: Yes (occ) Alcohol type: beer Alcohol Intake Frequency: Monthly or Less Hx Substance Use: No Preferred Language: Georgian Communication Ability: Effective Visual Impairment: No Limitations Hearing Ability: Normal Oil Well Pumper Required: No Beliefs That Will Affect Care: None marital status: / Current Living Situation: Family current occupational status: retired How many Children do You have: 3 Feels Safe at Home: Yes Childhood Exposure to Second-Hand Smoke: Yes caffeine: Yes during the past year weight has: remained stable Dental Care, Regularly: No Physical Activity Frequency: 5-6 Times per Week Seatbelt Use: sometimes Sunscreen Use: No Assistive Devices: Denture - Upper and Denture - Lower Review of Systems Review of Systems: A 13 point review of systems was negative other than pertinent positives and negatives as per the HPI. Physical Exam Constitutional: WD/WN, vitals as above Eyes: EOM intact bilaterally Neck: normal appearance Respiratory: normal respiratory effort, lungs clear to auscultation Cardiovascular: Rate/Rhythm: regular rate and regular rhythm Heart Sounds: no gallop and no murmur Gastrointestinal (Abdomen): normal bowel sounds, soft, nontender, no hepatosplenomegaly Inspection/Auscultation: abdomen not distended Musculoskeletal: Extremities: no cyanosis no lower extremity edema Skin: no rashes, warm and dry Neurologic: moves all extremities Psychiatric: A+Ox3, euthymic affect Results & Data ([facility]) Vital Signs (Past 12 Hours) Vital Signs Temp Pulse Resp BP BP Pulse Ox 09/28/20 06:33 36.8 C 55 L 14 124/64 94 09/27/20 21:55 36.6 C 82 14 124/73 95 Laboratory Results Abnormal lab results 09/27/20 09/27/20 09/27/20 Range/Units 11:50 11:50 21:05 WBC 11.35 H (4.8-10.8) K/uL RBC 3.83 L (4.7-6.1) M/uL Hgb 12.1 L (14.0-18.0) g/dL Hct 36.5 L (42-52) % RDW Std Deviation 48.0 H (36.4-46.3) fL MPV 10.9 H (7.4-10.4) fL Neut # (Auto) 9.44 H (1.4-6.5) K/uL Lymph # (Auto) 0.85 L (1.2-3.4) K/uL [place] # (Auto) 0.88 H (0.11-0.59) K/uL Sodium (136-145) mmol/L Chloride 108 H (98-107) mmol/L BUN 40 H (7-18) mg/dl BUN/Creatinine Ratio 36.0 H (10-20) Ur Specific [place] > 1.045 H (1.000-1.030) Urine Ketones 4+ H (Negative) 09/28/20 09/28/20 Range/Units 07:53 07:53 WBC (4.8-10.8) K/uL RBC 3.38 L (4.7-6.1) M/uL Hgb 10.7 L (14.0-18.0) g/dL Hct 32.9 L (42-52) % RDW Std Deviation 49.7 H (36.4-46.3) fL MPV 10.8 H (7.4-10.4) fL Neut # (Auto) (1.4-6.5) K/uL Lymph # (Auto) (1.2-3.4) K/uL [place] # (Auto) (0.11-0.59) K/uL Sodium 147 H (136-145) mmol/L Chloride 113 H (98-107) mmol/L BUN 30 H (7-18) mg/dl BUN/Creatinine Ratio 33.9 H (10-20) Ur Specific [place] (1.000-1.030) Urine Ketones (Negative) PG Care Time/CCT Total # of Minutes Spent Total Time Spent with Patient: Total time spent is greater than 50% in coordination of care (as documented) at patient's floor/unit and/or counseling patient: Coding Level of Care Code 48384 Initial Inpt Care Lvl 3 Diagnoses GERD (gastroesophageal reflux disease) K21.[address] of the abdomen R93.5
--- NOTE | 2020-09-28 11:38 | Anesthesiology Consultation ---
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 History Surgery Operation Date: 09/28/20 17:15 Proposed Procedures p Esophagogastroduodenoscopy Dr. Burns - Sumanth Burns MD Height/Weight Height: 5 ft 2 in Weight: 44.9 kg Allergies Allergy/AdvReac Type Severity Reaction Status Date / Time No Known Allergies Allergy Verified 09/27/20 14:29 Medications Home Medications Medication Instructions Recorded Confirmed Last Taken aspirin 81 mg chewable tablet 81 mg PO PM 07/02/20 09/27/20 09/24/20 atorvastatin 40 mg tablet 40 mg PO PM 07/02/20 09/27/20 09/24/20 metoprolol tartrate 25 mg tablet 25 mg PO PM 07/02/20 09/27/20 09/24/20 memantine 5 mg tablet 5 mg PO BID 09/24/20 09/27/20 09/24/20 pantoprazole 40 mg tablet,delayed 40 mg PO QAM 09/27/20 09/27/20 09/24/20 release Active Medications Generic Name Dose Route Start Last Admin Trade Name Freq PRN Reason Stop Dose Admin Acetaminophen 1,000 mg 09/27/20 21:49 09/27/20 22:05 Acetaminophen 1000 Mg/100 Ml Iv IV 09/30/20 21:48 1,000 mg Q8H PRN Administration Pain or Fever Pantoprazole Sodium 40 mg/ 10 mls @ 5 mls/min 09/27/20 21:00 09/28/20 08:08 Syringe IV 10/27/20 20:59 5 mls/min BID ITALIA Administration Lactated Ringer's 1,000 mls @ 80 mls/hr 09/27/20 17:56 09/28/20 08:08 Lr IV 10/27/20 17:55 80 mls/hr .[id number] ITALIA Administration NPO Date Last Intake of Fluids: 09/27/20 Time Last Intake of Fluids: 23:00 Date Last Intake of Solids: 09/27/20 Time Last Intake of Solids: 18:00 Past Medical History Medical History CAD (coronary artery disease) GERD (gastroesophageal reflux disease) Glaucoma Hypercholesteremia Prostate cancer Past Family History Family History Denies family history of Ovarian cancer Prostate cancer Myocardial infarction Breast cancer Colorectal cancer Past Surgical History Surgical History History of quadruple bypass Social History Smoking Status: Never smoker Do You Dip or Chew Tobacco: No Hx Alcohol Use: Yes (occ) Alcohol type: beer alcohol intake frequency: other Hx Substance Use: No substance use type: does not use Physical Exam Vital Signs Last Vital Signs Temp 36.5 C 09/28/20 11:14 Pulse 58 L 09/28/20 11:14 Resp 18 09/28/20 11:14 BP 132/57 L 09/28/20 11:14 Pulse Ox 96 09/28/20 11:14 Testing Laboratory Results 09/28/20 07:53 09/28/20 07:53 APTT 23.5 Seconds (21.0-31.0) 09/27/20 12:35 Urine Color Yellow 09/27/20 21:05 Urine Appearance Clear (Clear) 09/27/20 21:05 Urine pH 5.0 (4.5-7.5) 09/27/20 21:05 Ur Specific [place] > 1.045 (1.000-1.030) H 09/27/20 21:05 Urine Protein Negative (Negative) 09/27/20 21:05 Urine Glucose (UA) Negative (Negative) 09/27/20 21:05 Urine Ketones 4+ (Negative) H 09/27/20 21:05 Urine Nitrite Negative (Negative) 09/27/20 21:05 Ur Leukocyte Esterase Negative (Negative) 09/27/20 21:05 Electrocardiogram Date: 09/27/20 Test Reason : Blood Pressure : / mmHG Vent. Rate : 089 BPM Atrial Rate : 089 BPM P-R Int : 170 ms QRS Dur : 128 ms QT Int : 386 ms P-R-T Axes : 061 -50 077 degrees QTc Int : 469 ms Normal sinus rhythm Right bundle branch block Left anterior fascicular block Bifascicular block Abnormal ECG No previous ECGs available Confirmed by Kushal Shelton ([id number]) on 09/27/2020 1:35:37 PM Chest X-Ray Date: 09/27/20 XR chest 1V portable CLINICAL HISTORY: Chest Pain COMPARISON STUDY: No previous studies for comparison. FINDINGS: Lung volumes are normal. Lungs are clear. There is no pneumothorax or pleural effusion. Cardiac size is normal. Mediastinal contours are normal. There is no evidence for pulmonary edema. Incidental note is made of old bilateral clavicular fractures and multiple old right rib fractures. There are median sternotomy wires and mediastinal surgical clips. IMPRESSION: No acute cardiopulmonary findings.
[2020-09-28] MEDS ORDERED: LIDOCAINE 2% 2 ML VIAL/AMP(20MG/ML) INFIL ONE (11:45)
[2020-09-28] MEDS ORDERED: PROPOFOL IV EMULSION 10 MG/ML 20 ML VIAL IV ONE (11:45)
--- NOTE | 2020-09-28 12:13 | GI REPORT ---
Patient Name: Carson Sykes Procedure Date: 09/28/2020 11:51 AM Date of : 1940 Admit Type: Inpatient Age: 80 Gender: Male Attending MD: Sumanth Burns MD Procedure: Upper GI endoscopy Providers: Sumanth Burns MD Referring MD: Christian Tidwell Indications: Abnormal CT of the GI tract Medicines: Monitored Anesthesia Care Complications: No immediate complications. Estimated blood loss: None. Estimated Blood Loss: Estimated blood loss: none. Procedure: Pre-Anesthesia Assessment: - Prior Anticoagulants: The patient has taken no previous anticoagulant or antiplatelet agents. - ASA Grade Assessment: III - A patient with severe systemic disease. After obtaining informed consent, the endoscope was passed under direct vision. Throughout the procedure, the patient's blood pressure, pulse, and oxygen saturations were monitored continuously. The Endoscope was introduced through the mouth, with the intention of advancing to the duodenum. The scope was advanced to the lower third of the esophagus before the procedure was aborted. Medications were given. The upper GI endoscopy was accomplished without difficulty. The patient tolerated the procedure well. Findings: One malignant-appearing, intrinsic severe (stenosis; an endoscope cannot pass) stenosis was found 30 cm from the incisors. The stenosis was not traversed. Biopsies were taken with a cold forceps for histology. Estimated blood loss: none. Food was found in the middle third of the esophagus. attempts were made to suction the debris, which likely built up due to malignant stricture. Impression: - Malignant-appearing esophageal stenosis. Biopsied. - Food in the middle third of the esophagus. Recommendation: - Return patient to hospital walls for ongoing care. - NPO today and tomorrow, strict -plan for EGD with esophageal stent placement and EUS for staging in the OR tomorrow with Dr. Butler -supportive care, [facility] Sumanth Burns MD 09/28/2020 12:13:12 PM This report has been signed electronically. Note Initiated On: 09/28/2020 11:51 AM Number of Addenda: 0 I attest to the content of the Intraoperative Record and orders documented therein, exceptions below {[id number]}
--- NOTE | 2020-09-28 13:04 | Anesthesiology Progress Note ---
Date of Service September 28, 2020 Anesthesia Post Procedure Vital Signs Vital Signs: Temp Pulse Pulse Resp BP BP Pulse Ox 09/28/20 12:32 58 L 16 99/45 L 92 09/28/20 12:17 63 16 101/50 L 92 09/28/20 12:02 89 14 100/49 L 96 09/28/20 11:14 36.5 C 58 L 18 132/57 L 96 09/28/20 06:33 36.8 C 55 L 14 124/64 94 09/27/20 21:55 36.6 C 82 14 124/73 95 09/27/20 17:59 36.6 C 62 16 125/74 96 09/27/20 17:13 76 17 121/69 98 Transfer of Care Handoff Completed per policy Notes Mental Status: alert / awake / arousable and participated in evaluation Patient Amnestic to Procedure: Yes Nausea / Vomiting: adequately controlled Pain: adequately controlled Airway Patency, RR, SpO2: stable & adequate BP & HR: stable & adequate Hydration State: stable & adequate Anesthetic Complications: no major complications apparent and Pt Satisfied with anesthetic care
--- NOTE | 2020-09-28 16:42 | Hospitalist Progress Note ---
Date of Service September 28, 2020 Assessment & Plan (1) Esophageal dysmotility: Plan: Patient has inability to take p.o. at home. CT scan shows esophagus full of food. Medical attempts to promote any disimpaction were unsuccessful including glucagon. GI medicine was consulted 1 malignant appearing intrinsic severe stenosis was found at 30 cm from the incisors. The stenosis was not transverse. Biopsies were taken with cold forceps. Estimated blood loss was none. Fluid was found in the midesophagus Attempted to call family and was met with voicemail IV fluids and intravenous proton pump inhibitor (2) Dementia: Plan: Patient typically takes memantine, will be npo offering prn zyprexa (3) Prostate cancer: Plan: extent is unknown, there is some comment on CT of gluteal muscle ? mass, (4) GERD (gastroesophageal reflux disease): Plan: Recently changed from omeprazole to pantoprazole this likely may explain some of the findings on CT scan however mucosal mass cannot be ruled out subsequently endoscopy be undertaken (5) CAD (coronary artery disease): Plan: Patiently typically takes aspirin metoprolol and atorvastatin (6) DVT prophylaxis: Plan: SCDs for DVT prevention Admission and Anticipated Discharge Date Admission Date: September 27, 2020 Subjective pt was seen pre procedure was without distress Review of Systems Review of Systems: Mild distress and fatigue no headache, no visual changes no speech or swallowing issues no chest pain, pressure or palpitations no shortness of breath, cough or wheezes no abdominal pain, nausea or vomiting, diarrhea or constipation no dysuria, hematuria or frequency some right hip pain no back pain, CVA tenderness or radicular pain no bruising, bleeding or rashes no focal signs of weakness or numbness or altered sensation no complaints of anxiety or depression.. Physical Exam Physical Exam: The patient appeared well nourished and normally developed. Patient by nature is typically very small Vital signs as documented. Head exam is normocephalic atraumatic Neck is without JVD, thyromegaly, or carotid bruits. Lungs are clear to auscultation, no focal loss of breath sounds Cardiac exam, Rhythm is regular.. No murmurs, rubs or gallops. Abdominal exam reveals normal bowel sounds, soft non tender, no masses Extremities are nonedematous and both pedal pulses are present Neurologic exam is alert and oriented, no focal loss of strength or sensation Skin is without bruises or rashes Psychologically is without concerns for anxiety or depression Results & Data Results & Data ([facility]) Vital Signs (Past 12 Hours) Vital Signs Temp Pulse Resp BP BP Pulse Ox 09/28/20 15:45 98.2 F 54 L 16 110/66 95 09/28/20 12:32 58 L 16 99/45 L 92 09/28/20 12:17 63 16 101/50 L 92 09/28/20 12:02 89 14 100/49 L 96 09/28/20 11:14 97.7 F 58 L 18 132/57 L 96 09/28/20 06:33 98.2 F 55 L 14 124/64 94 PG Care Time/CCT Total # of Minutes Spent Total Time Spent with Patient: Total time spent is greater than 50% in coordination of care (as documented) at patient's floor/unit and/or counseling patient: Coding Level of Care Code 16962 Subseq Hosp Care Lvl 2 Diagnoses Esophageal dysmotility K22.4 Dementia F03.90 Dementia behavioral disturbance: without behavioral disturbance Dementia type: unspecified type Prostate cancer C61 GERD (gastroesophageal reflux disease) K21.9 CAD (coronary artery disease) I25.10 DVT prophylaxis Z29.9 (1) Dementia Dementia behavioral disturbance: without behavioral disturbance Dementia type: unspecified type Qualified Code(s): F03.90 - Unspecified dementia without behavioral disturbance
--- NOTE | 2020-09-28 16:56 | Anesthesiology Consultation ---
Date of Service September 28, 2020 Assessment & Plan (1) Encounter for pre-operative examination: Chart Review Chart Review: Acceptable Risk for Surgery and Patient NOT seen in Pre Admission Testing Consults Requested none History Surgery Operation Date: 09/28/20 17:15 Proposed Procedures p Esophagogastroduodenoscopy Dr. Burns - Sumanth Burns MD Operation Date: 09/29/20 10:05 Proposed Procedures p Endoscopic Ultrasonography Upper - Zhou Butler DO s Esophagogastroduodenoscopy - Zhou Butler DO Height/Weight Height: 5 ft 2 in Weight: 44.9 kg Allergies Allergy/AdvReac Type Severity Reaction Status Date / Time No Known Allergies Allergy Verified 09/27/20 14:29 Medications Home Medications Medication Instructions Recorded Confirmed Last Taken aspirin 81 mg chewable tablet 81 mg PO PM 07/02/20 09/27/20 09/24/20 atorvastatin 40 mg tablet 40 mg PO PM 07/02/20 09/27/20 09/24/20 metoprolol tartrate 25 mg tablet 25 mg PO PM 07/02/20 09/27/20 09/24/20 memantine 5 mg tablet 5 mg PO BID 09/24/20 09/27/20 09/24/20 pantoprazole 40 mg tablet,delayed 40 mg PO QAM 09/27/20 09/27/20 09/24/20 release Active Medications Generic Name Dose Route Start Last Admin Trade Name Freq PRN Reason Stop Dose Admin Acetaminophen 1,000 mg 09/27/20 21:49 09/27/20 22:05 Acetaminophen 1000 Mg/100 Ml Iv IV 09/30/20 21:48 1,000 mg Q8H PRN Administration Pain or Fever Pantoprazole Sodium 40 mg/ 10 mls @ 5 mls/min 09/27/20 21:00 09/28/20 08:08 Syringe IV 10/27/20 20:59 5 mls/min BID ITALIA Administration Lactated Ringer's 1,000 mls @ 80 mls/hr 09/27/20 17:56 09/28/20 08:08 Lr IV 10/27/20 17:55 80 mls/hr .[id number] ITALIA Administration NPO Date Last Intake of Fluids: 09/27/20 Time Last Intake of Fluids: 23:00 Date Last Intake of Solids: 09/27/20 Time Last Intake of Solids: 18:00 Past Medical History Medical History CAD (coronary artery disease) GERD (gastroesophageal reflux disease) Glaucoma Hypercholesteremia Prostate cancer Past Family History Family History Denies family history of Ovarian cancer Prostate cancer Myocardial infarction Breast cancer Colorectal cancer Past Surgical History Surgical History History of quadruple bypass Social History Smoking Status: Never smoker Do You Dip or Chew Tobacco: No Hx Alcohol Use: Yes (occ) Alcohol type: beer alcohol intake frequency: other Hx Substance Use: No substance use type: does not use Physical Exam Vital Signs Last Vital Signs Temp 36.8 C 09/28/20 15:45 Pulse 54 L 09/28/20 15:45 Resp 16 09/28/20 15:45 BP 110/66 09/28/20 15:45 Pulse Ox 95 09/28/20 15:45 Testing Laboratory Results 09/28/20 07:53 09/28/20 07:53 APTT 23.5 Seconds (21.0-31.0) 09/27/20 12:35 Urine Color Yellow 09/27/20 21:05 Urine Appearance Clear (Clear) 09/27/20 21:05 Urine pH 5.0 (4.5-7.5) 09/27/20 21:05 Ur Specific [place] > 1.045 (1.000-1.030) H 09/27/20 21:05 Urine Protein Negative (Negative) 09/27/20 21:05 Urine Glucose (UA) Negative (Negative) 09/27/20 21:05 Urine Ketones 4+ (Negative) H 09/27/20 21:05 Urine Nitrite Negative (Negative) 09/27/20 21:05 Ur Leukocyte Esterase Negative (Negative) 09/27/20 21:05 Electrocardiogram Date: 09/27/20 Test Reason : Blood Pressure : / mmHG Vent. Rate : 089 BPM Atrial Rate : 089 BPM P-R Int : 170 ms QRS Dur : 128 ms QT Int : 386 ms P-R-T Axes : 061 -50 077 degrees QTc Int : 469 ms Normal sinus rhythm Right bundle branch block Left anterior fascicular block Bifascicular block Abnormal ECG No previous ECGs available Confirmed by Kushal Shelton ([id number]) on 09/27/2020 1:35:37 PM Chest X-Ray Date: 09/27/20 XR chest 1V portable CLINICAL HISTORY: Chest Pain COMPARISON STUDY: No previous studies for comparison. FINDINGS: Lung volumes are normal. Lungs are clear. There is no pneumothorax or pleural effusion. Cardiac size is normal. Mediastinal contours are normal. There is no evidence for pulmonary edema. Incidental note is made of old bilateral clavicular fractures and multiple old right rib fractures. There are median sternotomy wires and mediastinal surgical clips. IMPRESSION: No acute cardiopulmonary findings.
[2020-09-28] MEDS ORDERED: PNEUMOCOCCAL POLYSACCHARIDES 25 MCG/0.5 ML VIAL/SYR IM ONE (18:43)
[2020-09-28] MEDS: ACETAMINOPHEN 1000 MG/100 ML IV IV PRN (20:57)
[2020-09-29] MEDS ORDERED: OPTIRAY 320 100ml IV ONE (01:39)
[2020-09-29 08:16] LABS: Hematocrit (blood only) 30.4 % (42-52); Hemoglobin 9.9 g/dL (14.0-18.0); Mean Corpuscular Hemoglobin 31.4 pg (25-34); Mean Corpuscular Hgb Conc 32.6 g/dL (32-36); Mean Corpuscular Volume 96.5 fL (80-100); Mean Platelet Volume 10.7 fL (7.4-10.4); Platelet Count 257 K/uL (130-400); RDW Standard Deviation 49.3 fL (36.4-46.3); Red Blood Count 3.15 M/uL (4.7-6.1); White Blood Count 7.42 K/uL (4.8-10.8)
--- NOTE | 2020-09-29 08:36 | CT Scan Report ---
CT SCAN OF THE CHEST WITH IV CONTRAST CLINICAL HISTORY: Esophageal cancer. Metastatic survey. COMPARISON STUDY: Chest x-ray dated 09/27/2020. Abdominal CT dated 09/27/2020. TECHNIQUE: Following the IV administration of 93 cc of Optiray 320, CT scan of the thorax was perform ed from the thoracic inlet to the upper abdomen. Images are reviewed in the axial, sagittal, and baldemar nal planes. IV contrast was administered without complication. A dose lowering technique was utilize d adhering to the principles of ALARA. CT DOSE: 355.07 mGy.cm FINDINGS: Thyroid: Imaged portions of the thyroid gland are normal in size and attenuation. Thoracic aorta: There is mild atherosclerotic calcification of the thoracic aorta. There is ectasia o f the ascending thoracic aorta which measures up to 3.9 cm in diameter. The remainder of the thoracic aorta is normal in caliber, and the arch demonstrates standard 3-vessel anatomy. No dissection is se en. Pulmonary vasculature: The main pulmonary arteries are dilated suggesting pulmonary artery hypertensi on. There are no filling defects identified in the central pulmonary vessels to indicate pulmonary em bolus. Note that this examination was not protocoled for evaluation of the pulmonary arteries. Heart: The patient is status post midline sternotomy. The heart is enlarged and without pericardial e ffusion. The coronary arteries are densely calcified. Esophagus and stomach: The esophagus is distended and filled with fluid/debris to the level of the t horacic inlet. There is mild diffuse esophageal wall thickening and hyperemia suggestive of esophagit is. There is a small to moderate hiatal hernia with evidence of previous fundoplication. Irregular en hancing nodular soft tissue is suggested in the distal esophagus on image #183. This likely correspon ds to the reported history of esophageal cancer. The largest enhancing nodular component measures akua roximately 2.5 cm. Lungs and pleural spaces: Evaluation of the lung parenchyma is degraded by motion artifact. The trach ea and central airways are clear. There are trace pleural effusions with dependent atelectasis. Mild groundglass opacities are seen within the right upper lobe on image #94. Mediastinum: A 1.3 x 1.0 cm lymph node is seen anterior to the descending thoracic aorta on image #17 0. No additional enlarged mediastinal lymph nodes are identified. Kayla: Clear. Axillae: There is no axillary lymphadenopathy. Upper abdomen: A centrally necrotic lymph node just below the esophageal hiatus on image #226 measure s 1.6 x 1.4 cm. There are least 5 indeterminant low attenuation hepatic lesions measure up to 11 mm. Metastatic deposits are not excluded. Skeletal structures: The skeletal structures are osteopenic. Degenerative change and hyperkyphosis ar e noted throughout the thoracic spine. There are numerous thoracic compression deformities. Loss of h eight is greatest at T8 and T12. No lytic or blastic bony lesions are clearly identified. There is ch ronic posttraumatic deformity of the right clavicle. There are healed left-sided rib fractures. IMPRESSION: 1. Again seen are findings suspicious for an esophageal mass lesion just above the gastroesophageal j unction. Correlate with endoscopy results. 2. There is a mildly enlarged inferior mediastinal lymph node as well as a centrally necrotic upper a bdominal lymph node which are unchanged and suspicious for bhumi metastatic disease. 3. There are at least 5 indeterminate low-attenuation hepatic lesions. Metastatic disease is not excl uded. 4. There is no evidence of pulmonary metastatic disease. 5. Findings suggest esophagitis. 6. The esophagus is distended and filled with fluid/debris to the level of the thoracic inlet. Note t hat this may place the patient at risk for aspiration. 7. Cardiomegaly and trace pleural effusions. 8. Mild patchy groundglass opacities are seen in the right upper lobe. Correlate clinically for evide nce of a mild infectious/inflammatory pneumonitis. 9. Additional findings as above. ACT 112: Negative or not required by law. Electronically signed by: Ben Gallegos M.D. 09/29/2020 8:35 AM
[2020-09-29 08:49] LABS: BUN Creatinine Ratio 28.8 (10-20); Calcium 9.1 mg/dl (8.5-10.1); Creatinine Clr Calc Pharmacy 53.6 ml/min; Est GFR (African American) 103.4 ml/min; Est GFR (Non-African American) 89.2 ml/min; Potassium 3.6 mmol/L (3.5-5.1)
[2020-09-29] MEDS: PANTOprazole 40 MG in SYRINGE 0 ML IV SCH ×2 (09:02→21:06)
--- NOTE | 2020-09-29 09:28 | Gastroenterology Progress Note ---
Date of Service September 29, 2020 Assessment & Plan (1) Abnormal CT of the abdomen: Plan: Pt is a 80 y/o male seen for esophageal stenosis, CT chest showed sign of esophageal mass in GE junction, lymphadenopathy and hepatic lesions. - NPO - IVF support - Plan for EGD w esophageal stent placement and EUS eval - Further recs after procedures are completed Admission and Anticipated Discharge Date Admission Date: September 27, 2020 Supervising Physician Co-Signing Physician Notes I saw and evaluated the patient. Consent was obtained via the patient's daughter as he not of mental status to do his own consent at the present time. We have discussed the risks of upper endoscopy endoscopic ultrasound and esophageal stent placement to include bleeding, infection, perforation, aspiration, insufficient cellularity, stent migration and need for follow-up studies. 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 We will perform an upper endoscopy today in hopes of getting through his esophageal mass and ultimately placing a prosthesis if needed. We will also try and perform an endoscopic ultrasound for further characterization of his underlying malignancy. Subjective Pt denies abd pain, n/v. Had been NPO Review of Systems Review of Systems: All systems reviewed & are unremarkable except as noted in HPI & below Constitutional: as per Subjective / HPI Physical Exam Constitutional: Thin appearing male, pleasant, cooperative Eyes: PERRL, conjunctivae normal, anicteric sclerae ENMT: external ear and nose normal, oropharynx normal Respiratory: normal respiratory effort, lungs clear to auscultation Cardiovascular: RRR, no murmur, no edema Gastrointestinal (Abdomen): Abd soft non tender, BS hypoactive Skin: no rashes, warm and dry no jaundice Neurologic: Alert, oriented to self only Lymphatic: no lymphedema Results & Data ([facility]) Vital Signs (Past 12 Hours) Vital Signs Temp Pulse Resp BP BP Pulse Ox 09/29/20 08:01 36.7 C 51 L 16 117/67 95 09/29/20 00:46 36.5 C 50 L 16 102/56 L 95
[2020-09-29] MEDS ORDERED: fentaNYL citrate 100 MCG/2 ML VIAL ONE ×2 (09:47→10:54)
[2020-09-29] MEDS ORDERED: ONDANSETRON INJ 2 MG/ML 2 ML VIAL IV PRN (09:59)
[2020-09-29] MEDS ORDERED: ATROPINE SULFATE 0.1 MG/ML 10ML SYR IV PRN (09:59)
[2020-09-29] MEDS ORDERED: fentaNYL citrate 100 MCG/2 ML VIAL IV PRN (09:59)
[2020-09-29] MEDS ORDERED: ePHEDrine sulfate 50 MG/ML AMP IV PRN (09:59)
[2020-09-29] MEDS ORDERED: PROPOFOL IV EMULSION 10 MG/ML 20 ML VIAL IV ONE (10:54)
[2020-09-29] MEDS ORDERED: LIDOCAINE 2% 2 ML VIAL/AMP(20MG/ML) INFIL ONE (10:54)
[2020-09-29] MEDS ORDERED: SUCCINYLCHOLINE 100MG/5ML SYR IV ONE (10:54)
--- NOTE | 2020-09-29 11:29 | Post Operative Brief Note ---
Immediate Post Op Note v1 Date of Surgery September 29, 2020 Pre & Post Diagnosis Operation Date: 09/29/20 10:05 Pre-Op Diagnosis: esophageal mass Post-Op Diagnosis: esophageal mass I identified the patient and participated in the time-out.: Yes Procedure Operation Date: 09/29/20 10:05 Actual Procedures p Upper Endoscopic Ultrasonography esophagogastroduodenoscopy, esophageal stent placement(Not Applicable) - Zhou Butler DO s Esophagogastroduodenoscopy(Not Applicable) - Zhou Butler DO Surgeon Zhou Butler DO Sole Blacker none Estimated Blood Loss 0 Findings Consistent with Post-Op Diagnosis
--- NOTE | 2020-09-29 11:31 | Communication Note ---
Date of Service: September 29, 2020 The patient underwent upper endoscopy with endoscopic ultrasound this afternoon for a newly identified esophageal mass. We were unable to pass any of the e ndoscope through the mass and therefore a limited EUS was performed. It appears the patient has a T3N1 mass likely with metastatic disease based on his CT scan. An esophageal stent was placed through the mass. Recommendations Would suggest empiric antibiotic coverage for total of 7 days as the patient may have aspirated prior to his procedure due to the obstruction Liquid diet today, instructions for advancing the patient's diet will be placed on to his chart Await pathology results via Dr. Burns Outpatient medical oncology referral should be considered
--- NOTE | 2020-09-29 11:40 | GI REPORT ---
Patient Name: Carson Sykes Procedure Date: 09/29/2020 10:20 AM Date of : 1940 Admit Type: Inpatient Age: 80 Gender: Male Attending MD: Zhou Butler DO Procedure: Upper EUS Providers: Zhou Butler DO Referring MD: Kalin Gonzales, Sumanth Burns MD Indications: Esophageal mucosal mass/polyp found on endoscopy Medicines: General Anesthesia Complications: No immediate complications. Estimated blood loss: Minimal. Estimated Blood Loss: Estimated blood loss was minimal. Procedure: Pre-Anesthesia Assessment: - Prior to the procedure, a History and Physical was performed, and patient medications, allergies and sensitivities were reviewed. The patient's tolerance of previous anesthesia was reviewed. - The risks and benefits of the procedure and the sedation options and risks were discussed with the patient. All questions were answered and informed consent was obtained. - The patient is competent. The alternatives, risks and benefits of the procedure were discussed at length with the patient's daughter. The patient's proxy verbalized understanding of the risks as well as the alternatives and wished to proceed with the procedure. - Patient identification and proposed procedure were verified prior to the procedure by the physician, the nurse and the elementary school band director. The procedure was verified in the procedure room. - Pre-procedure physical examination revealed no contraindications to sedation. - ASA Grade Assessment: III - A patient with severe systemic disease. - After reviewing the risks and benefits, the patient was deemed in satisfactory condition to undergo the procedure. - The anesthesia plan was to use general anesthesia. - Immediately prior to administration of medications, the patient was re-assessed for adequacy to receive sedatives. - The heart rate, respiratory rate, oxygen saturations, blood pressure, adequacy of pulmonary ventilation, and response to care were monitored throughout the procedure. - The physical status of the patient was re-assessed after the procedure. After obtaining informed consent, the endoscope was passed under direct vision. Throughout the procedure, the patient's blood pressure, pulse, and oxygen saturations were monitored continuously. The scope was introduced through the mouth, and advanced to the middle third of esophagus. Only a limited ultrasound could be performed due to the obstructing esophageal mass. The upper EUS was accomplished without difficulty. The patient tolerated the procedure well. Findings: ENDOSONOGRAPHIC FINDING: : A hypoechoic mass was found in the middle third of the esophagus. The mass was encountered at 30 cm from the incisors and extended to 15 cm. The lesion was circumferential. The endosonographic borders were irregular. The mass measured up to 13 mm in thickness. There was sonographic evidence suggesting invasion into the adventitia (Layer 5). Many lymph nodes were visualized with the ultrasound probe in the subcarinal mediastinum (level 7). The nodes were oval. The first node measured 9 mm by 5 mm. The second node measured 10 mm by 8 mm. Impression: - A mass was found in the middle third of the esophagus. This was staged T3 N1 Mx by endosonographic criteria. - Many lymph nodes were visualized and measured in the subcarinal mediastinum (level 7). FNA not performed as these were adjacent to the primary esophageal mass. - No specimens collected. Recommendation: - Perform an upper GI endoscopy today. Zhou Butler D.O. Zhou Butler, 09/29/2020 11:40:05 AM This report has been signed electronically. Note Initiated On: 09/29/2020 10:20 AM Number of Addenda: 0 I attest to the content of the Intraoperative Record and orders documented therein, exceptions below {[id number]}
--- NOTE | 2020-09-29 11:47 | GI REPORT ---
Patient Name: Carson Sykes Procedure Date: 09/29/2020 10:19 AM Date of : 1940 Admit Type: Inpatient Age: 80 Gender: Male Attending MD: Zhou Butler DO Procedure: Upper GI endoscopy Providers: Zhou Butler DO Referring MD: Kalin Gonzales Indications: For palliative stenting of stenosing neoplasm of the esophagus Medicines: General Anesthesia Complications: Aspiration (suspected prior to procedure) Estimated Blood Loss: Estimated blood loss was minimal. Procedure: Pre-Anesthesia Assessment: - Prior to the procedure, a History and Physical was performed, and patient medications, allergies and sensitivities were reviewed. The patient's tolerance of previous anesthesia was reviewed. - The patient is unable to give consent secondary to the patient's altered mental status. The alternatives, risks and benefits of the procedure were discussed at length with the patient's daughter. The patient's proxy verbalized understanding of the risks as well as the alternatives and wished to proceed with the procedure. - Patient identification and proposed procedure were verified prior to the procedure by the physician, the nurse and the blacksmith farm. The procedure was verified in the procedure room. - Pre-procedure physical examination revealed no contraindications to sedation. - ASA Grade Assessment: III - A patient with severe systemic disease. - After reviewing the risks and benefits, the patient was deemed in satisfactory condition to undergo the procedure. - The anesthesia plan was to use monitored anesthesia care (MAC). - Immediately prior to administration of medications, the patient was re-assessed for adequacy to receive sedatives. - The heart rate, respiratory rate, oxygen saturations, blood pressure, adequacy of pulmonary ventilation, and response to care were monitored throughout the procedure. - The physical status of the patient was re-assessed after the procedure. After obtaining informed consent, the endoscope was passed under direct vision. Throughout the procedure, the patient's blood pressure, pulse, and oxygen saturations were monitored continuously. The Endoscope was introduced through the mouth, and advanced to the middle third of esophagus. The upper GI endoscopy was accomplished without difficulty. The patient tolerated the procedure well. Findings: Food was found in the middle third of the esophagus. Removal of food was accomplished. A large, fungating and ulcerating mass with bleeding and stigmata of recent bleeding was found in the middle third of the esophagus, 32 cm from the incisors. The mass was completely obstructing and circumferential. This was stented with a 20 mm x 12 cm Evolution fully covered controlled-release stent with a 25 mm flange under fluoroscopic guidance, proximal margin at 31 cm from the incisors ([employer], REF SHAN 20-25-1254, Lot [id number]). Impression: - Food in the middle third of the esophagus. Removal was successful. - Completely obstructing, likely malignant esophageal tumor was found in the middle third of the esophagus. Prosthesis placed. Recommendation: - Return patient to hospital walls for ongoing care. - Clear liquid diet today. - Use broad spectrum antibiotics for 7 days for suspected aspiration. Zhou Butler D.O. Zhou Butler, DO 09/29/2020 11:46:56 AM This report has been signed electronically. Note Initiated On: 09/29/2020 10:19 AM Number of Addenda: 0 I attest to the content of the Intraoperative Record and orders documented therein, exceptions below {[id number]}
[2020-09-29] MEDS ORDERED: SUCCINYLCHOLINE CHLORIDE 20 MG/ML 10 ML VIAL IV ONE (11:54)
[2020-09-29] MEDS ORDERED: ONDANSETRON INJ 2 MG/ML 2 ML VIAL ONE (11:54)
[2020-09-29] MEDS ORDERED: DEXAMETHASONE SOD INJ 4 MG/ML VIAL ONE (11:54)
[2020-09-29] MEDS ORDERED: ESMOLOL HCL INJ 10 MG/ML 10ML VIAL IV ONE (11:54)
--- NOTE | 2020-09-29 12:11 | Fluoroscopy Report ---
FL chest 1V frontal CLINICAL HISTORY: ESOPHAGEAL STENT IN THE O.R. COMPARISON STUDY: Chest CT September 29, 2020. FLUOROSCOPY TIME: 1 minute and 38 seconds. FLUOROSCOPIC IMAGES: 48 FINDINGS: Fluoroscopy was provided during placement of a distal esophageal stent. Stent extends acros s the lesion within the distal esophagus shown on prior CT. Median sternotomy wires are incidentally noted. IMPRESSION: Fluoroscopy provided during placement of a distal esophageal stent. ACT 112: Negative or not required by law. Electronically signed by: Thien Molina M.D. 09/29/2020 12:10 PM
--- NOTE | 2020-09-29 12:19 | Anesthesiology Progress Note ---
Date of Service September 29, 2020 Anesthesia Post Procedure Vital Signs Vital Signs: Temp Pulse Pulse Resp BP BP Pulse Ox 09/29/20 12:10 97.3 F L 85 18 105/66 94 09/29/20 12:00 87 19 120/67 94 09/29/20 11:50 83 18 112/71 95 09/29/20 11:40 97.5 F L 84 16 122/66 96 09/29/20 10:00 98.2 F 52 L 20 116/55 L 94 09/29/20 08:01 98.1 F 51 L 16 117/67 95 09/29/20 00:46 97.7 F 50 L 16 102/56 L 95 09/28/20 15:45 98.2 F 54 L 16 110/66 95 09/28/20 12:32 58 L 16 99/45 L 92 Transfer of Care Handoff Completed per policy Notes Mental Status: alert / awake / arousable and participated in evaluation Patient Amnestic to Procedure: Yes Nausea / Vomiting: adequately controlled Pain: adequately controlled Airway Patency, RR, SpO2: stable & adequate BP & HR: stable & adequate Hydration State: stable & adequate Anesthetic Complications: no major complications apparent and Pt Satisfied with anesthetic care Notes: The procedure started as a MAC. Upon passing the endoscope, there was debris noted in the esophagus. We changed the anesthetic plan to a general anesthetic with endotracheal tube. A RSI intubation was performed with no debris noted in the airway. During the procedure, the endotracheal tube was suctioned for secretions/debris. The patient likely was chronically aspirating. We determined that the patient be transferred to PCU for closer monitoring. The patient's vital signs were stable throughout. Dr. Butler was aware.
[2020-09-29] MEDS: LACTATED RINGER'S 1,000 ML IV SCH (12:32)
[2020-09-29] MEDS ORDERED: AMPICILLIN/SULBACTAM SOD 3,000 MG in 0.9 % SODIUM CHLORIDE 100 ML IV SCH (14:00)
--- NOTE | 2020-09-29 15:18 | Hospitalist Progress Note ---
Date of Service September 29, 2020 Assessment & Plan (1) Esophageal stenosis: Plan: * Presumed malignant stricture s/p esophageal stenting by GI * GI has concerns for periprocedural aspiration--> will start empiric antibiotic therapy (Zosyn) * Per GI, patient to maintain liquids only X 2 days, then. Take food X 5 days, then mechanical soft. Will consult speech therapy to ensure patient able to maintain these dietary restrictions. * Pathology pending. This was discussed with daughter * Maintain aspiration precautions * Continue PPI therapy to decrease risk of aspiration (2) Esophageal dysmotility: Plan: * See above (3) Dementia: Plan: * Resume Namenda * patient has not had increased behaviors/agitation; however, will have Haldol on board as needed * Daughter has an appointment today at [facility] for admission to memory support (4) Prostate cancer: Plan: * extent is unknown, there is some comment on CT of gluteal muscle ? mass, (5) GERD (gastroesophageal reflux disease): Plan: * Continue PPI therapy (6) CAD (coronary artery disease): Plan: * Resume metoprolol * Continue withholding statin/aspirin for now until tolerating more oral intake (7) DVT prophylaxis: Plan: SCDs for DVT prevention Plan: -Suspect patient may be ready for discharge from a medical standpoint within the next 18 to 24 hours. Concern is disposition. Daughter to meet with [facility] today about admission to their facility in the memory care support unit. If that cannot happen in a timely fashion, may need to seek placement as discharged home (where patient primarily resides alone with help from daughter who lives in an apartment below him) not safe given his progressive dementia and wandering. -Plan of care to be discussed with Dr. Gonzales. Further orders as warranted. Admission and Anticipated Discharge Date Admission Date: September 27, 2020 Subjective Mr. Sykes was seen on daily rounds today. He is a 80-year-old white male with past medical history of dementia, CAD, prostate CA, GERD, and glaucoma. He resides in an independent apartment above his daughter. He was brought to the E D on 09/27 due to decreased oral intake and progressive vomiting. CT showed pooling of food in the esophagus. Conservative measures attempted to clear the esophagus including glucagonwithout success. GI consulted and patient was hospitalized. He had an EGD performed on 09/27 where he was found to have a malignant appearing stenosis with food likely due to a malignant stricture. Underwent Endoscopic Ultrasonography with esophageal stent placement today. Area of concern friable and presumed malignant. Samples obtained and sent for pathology. Surgeon has since reached out and is concerned that patient may have aspirated during this procedure. He is currently resting comfortably in his hospital bed. He is hemodynamically stable and not hypoxic. GI recommending Close Monitoring in PCU and empiric abx therapy. Daughter is at bedside and has an appointment today at [facility] support as she is concerned with him living alone in his apartment (despite being above hers). She claims that he wanders often and has had to be returned by authorities. Patient currently denies any symptomatology; however, is an unreliable historian. Nursing voices no complaints or concerns. Review of Systems Review of Systems: Question reliability given memory impairment Physical Exam Physical Exam: General: Resting comfortably in his hospital bed. Does not appear ill or toxic Cardiac: RRR with 1/6 PIERO Lungs: CTA without W/R/R Abdomen: Normoactive X4. Soft and nontender in all quadrants. Extremities: No peripheral clubbing cyanosis or edema Neuro: Awake. Oriented to self. Not oriented to time or situation. ? oriented to place (was astute enough to look at the wall and see the [facility] logo) cranial nerves II through XII are grossly intact no focal neuro deficits Skin: No obvious skin lesions or rashes Results & Data Results & Data ([facility]) Vital Signs (Past 12 Hours) Vital Signs Temp Pulse Pulse Resp BP BP Pulse Ox 09/29/20 13:25 36.6 C 74 16 112/70 92 09/29/20 12:51 36.5 C 94 H 16 126/64 93 09/29/20 12:10 36.3 C L 85 18 105/66 94 09/29/20 12:00 87 19 120/67 94 09/29/20 11:50 83 18 112/71 95 09/29/20 11:40 36.4 C L 84 16 122/66 96 09/29/20 10:00 36.8 C 52 L 20 116/55 L 94 09/29/20 08:01 36.7 C 51 L 16 117/67 95 Laboratory Results 09/29/20 07:55 09/29/20 07:55 PG Care Time/CCT Total # of Minutes Spent Total Time Spent with Patient: Total time spent is greater than 50% in coordination of care (as documented) at patient's floor/unit and/or counseling patient: [place] [address] Subseq Hosp Care Lvl 2 Patient Type Established History Expanded Problem Focused Exam Expanded Problem Focused Medical Decision Making Moderate Complexity Diagnoses Esophageal dysmotility K22.4 Dementia F03.90 Dementia behavioral disturbance: without behavioral disturbance Dementia type: unspecified type Prostate cancer C61 GERD (gastroesophageal reflux disease) K21.9 CAD (coronary artery disease) I25.10 DVT prophylaxis Z29.9 Esophageal stenosis K22.2 (1) Dementia Dementia behavioral disturbance: without behavioral disturbance Dementia type: unspecified type Qualified Code(s): F03.90 - Unspecified dementia without behavioral disturbance
[2020-09-29] MEDS ORDERED: PIPERACILL/TAZOBAC CONSULT ACTIVE PRN (15:39)
[2020-09-29] MEDS ORDERED: HALOPERIDOL LACTATE 5 MG/ML 1 ML VIAL IM PRN (15:39)
[2020-09-29] MEDS: ACETAMINOPHEN 1000 MG/100 ML IV IV PRN (15:41)
[2020-09-29] MEDS: PIPERACILLIN/TAZOBACTAM 3.375 GM in DEXTROSE 5% 100 ML IV SCH ×2 (16:16→23:40)
[2020-09-29] MEDS: ACETAMINOPHEN 500 MG TAB PO PRN (19:51)
[2020-09-29] MEDS: MEMANTINE HCL 5 MG TAB PO SCH (20:25)
[2020-09-29] MEDS: METOPROLOL TARTRATE 25 MG TAB PO SCH (20:25)
[2020-09-30] MEDS: LACTATED RINGER'S 1,000 ML IV SCH ×2 (03:39→09:38)
[2020-09-30 05:56] LABS: Basophils # (auto) 0.01 K/uL (0-0.2); Basophils % (auto) 0.1 %; Eosinophils # (auto) 0.02 K/uL (0-0.5); Eosinophils % (auto) 0.2 %; Hematocrit (blood only) 29.3 % (42-52); Hemoglobin 9.8 g/dL (14.0-18.0); Immature Granulocytes # (auto) 0.03 K/uL (0.00-0.02); Immature Granulocytes % (auto) 0.3 %; Lymphocytes % (auto) 5.8 %; Mean Corpuscular Hemoglobin 31.3 pg (25-34); Mean Corpuscular Hgb Conc 33.4 g/dL (32-36); Mean Corpuscular Volume 93.6 fL (80-100); Mean Platelet Volume 10.3 fL (7.4-10.4); Monocytes % (auto) 9.6 %; Neutrophils # (auto) 8.74 K/uL (1.4-6.5); Platelet Count 244 K/uL (130-400); RDW Coefficient of Variation 13.7 % (11.5-14.5); RDW Standard Deviation 46.8 fL (36.4-46.3); Red Blood Count 3.13 M/uL (4.7-6.1)
[2020-09-30 06:30] LABS: BUN Creatinine Ratio 25.2 (10-20); Calcium 8.7 mg/dl (8.5-10.1); Creatinine Clr Calc Pharmacy 45.8 ml/min; Est GFR (Non-African American) 83.7 ml/min; Magnesium 1.9 mg/dl (1.8-2.4); Potassium 3.8 mmol/L (3.5-5.1)
[2020-09-30] MEDS: PANTOprazole 40 MG in SYRINGE 0 ML IV SCH (08:24)
[2020-09-30] MEDS: PIPERACILLIN/TAZOBACTAM 3.375 GM in DEXTROSE 5% 100 ML IV SCH ×3 (08:24→22:55)
[2020-09-30] MEDS: MEMANTINE HCL 5 MG TAB PO SCH ×2 (08:24→22:47)
[2020-09-30] MEDS: ACETAMINOPHEN 500 MG TAB PO PRN ×2 (08:28→17:06)
--- NOTE | 2020-09-30 09:36 | Gastroenterology Progress Note ---
Date of Service September 30, 2020 Assessment & Plan (1) Abnormal CT of the abdomen: Plan: Pt is a 80 y/o male seen for esophageal stenosis, CT chest showed sign of esophageal mass in GE junction concerning for malignancy, lymphadenopathy and hepatic lesions. He is s/p EUS & EGD w esophageal stent placement on 09/29 - Follow esophageal stent compatible diet: liquids x 2 days, puree x 5 days then advance to soft foods (see more details in stent diet handout in pt's chart) - Antibx for suspected aspiration - F/U path per Dr. Burns - Consider outpt Oncology referral - GI to sign off; pls recall prn Admission and Anticipated Discharge Date Admission Date: September 27, 2020 Supervising Physician Co-Signing Physician Notes I saw and evaluated the patient. He does appear to be swallowing well after placement of the esophageal stent. Please follow the dietary recommendations as placed on to the patient's chart yesterday. With regard to medical oncology I believe the referral is being done by the patient's regular GI provider. Please call us with any questions or concerns Subjective Pt denies CP, Abd pain, n/v symptoms. Review of Systems Constitutional: as per Subjective / HPI Physical Exam Eyes: PERRL, conjunctivae normal, anicteric sclerae ENMT: external ear and nose normal, oropharynx normal Respiratory: normal respiratory effort, lungs clear to auscultation Cardiovascular: RRR, no murmur, no edema Gastrointestinal (Abdomen): normal bowel sounds, soft, nontender, no hepatosplenomegaly Skin: no rashes, warm and dry no jaundice Lymphatic: no lymphedema Results & Data ([facility]) Vital Signs (Past 12 Hours) Vital Signs Temp Pulse Pulse Pulse Resp BP Pulse Ox 09/30/20 07:03 36.6 C 50 L 16 130/64 95 09/30/20 04:22 36.5 C 50 L 18 101/56 L 95 09/29/20 23:06 36.7 C 56 L 17 97/53 L 94 09/29/20 23:05 59 L
--- NOTE | 2020-09-30 14:44 | Hospitalist Progress Note ---
Date of Service September 30, 2020 Assessment & Plan (1) Esophageal adenocarcinoma: Plan: * This was discussed with daughter * Will consult oncology to guide recommendations from here including staging. Would appreciate any further recommendations from oncology/GI (2) Esophageal stenosis: Plan: * malignant stricture s/p esophageal stenting by GI * GI with concerns for periprocedural aspiration--> on zosyn empirically. Will transition to Augmentin tomorrow * Per GI, patient to maintain liquids only X 2 days, then. Take food X 5 days, then mechanical soft. speech therapy consulted to ensure patient able to maintain these dietary restrictions. * pathology consistent with adenocarcinoma- see above * Maintain aspiration precautions * Continue PPI therapy to decrease risk of aspiration (3) Esophageal dysmotility: Plan: * See above (4) Dementia: Plan: * Resume Namenda * patient has not had increased behaviors/agitation. Haldol on board as needed (not utilized) * Goal is for discharge to [facility], memory support. They are to evaluate patient tomorrow morning to determine if he is appropriate for their facility. Will need an authorization (5) Prostate cancer: Plan: * extent is unknown, there is some comment on CT of gluteal muscle ? mass * ? warrant PET with newly dx adenocarcinoma of the esophagus as well. Consult Dr. Barahona. Appreciate recommendations (6) GERD (gastroesophageal reflux disease): Plan: * Continue PPI therapy (7) CAD (coronary artery disease): Plan: * Resume metoprolol * Continue withholding statin/aspirin for now until tolerating more oral intake (8) DVT prophylaxis: Plan: SCDs for DVT prevention Plan: -From a medical standpoint, patient is hemodynamically stable for discharge; however, safety is now a concern. He lives alone and given his progressive dementia, has been wandering. Attempting placement to [facility] memory support unit. Case management is on board. -Plan of care to be discussed with Dr. Gonzales. Further orders as warranted. -Daughter was called and updated Admission and Anticipated Discharge Date Admission Date: September 27, 2020 Subjective Patient seen on daily rounds today. He has done rather well postoperatively, has not had any complications. He was moved to PCU for close monitoring due to clinical concern for aspiration during his EGD/endoscopic ultrasound with esophageal stent placement. He has remained hemodynamically stable, afebrile, and has not had any oxygen requirements. He remains empirically on antibiotic therapy due to concern for aspiration. He is currently on clear liquids as outlined by GI. Tolerating this without difficulty. Esophageal stenosis was presumed malignant. Pathology report is showing adenocarcinoma. Spoke to daughter who had an appointment yesterday at [facility] to facilitate placement to memory support given patient's progressive dementia. Daughter lives in an apartment complex just below patient; however, he is independent in his own apartment. He has been brought back to the home multiple times by authorities as he has been wandering. Discharged home at this point is unsafe given his dementia and wandering. Review of Systems Review of Systems: Patient denies any complaints but is an unreliable histori an Physical Exam Physical Exam: General: Resting comfortably in his hospital bed. He is somnolent but arousable NAD. Neck: No JVD. Negative hepatojugular reflex Cardiac: RRR but distant Lungs: Speaking full sentences on ambient air. Good air exchange throughout without W/R/R Abdomen: Normoactive X4. Soft and nontender in all quadrants. Extremities: No peripheral clubbing cyanosis or edema Neuro: Patient is oriented to self. Not oriented to place/time or situation (baseline per daughter) Skin: No obvious skin lesions or rashes Results & Data Results & Data ([facility]) Vital Signs (Past 12 Hours) Vital Signs Temp Pulse Resp BP Pulse Ox 09/30/20 13:43 36.4 C L 50 L 16 125/66 95 09/30/20 11:58 36.6 C 53 L 16 119/70 96 09/30/20 07:03 36.6 C 50 L 16 130/64 95 09/30/20 04:22 36.5 C 50 L 18 101/56 L 95 Laboratory Results 09/30/20 05:41 09/30/20 05:41 Gross Description BIOPSY ESOPHAGEAL STRICTURE FINAL DIAGNOSIS Esophagus, distal stricture, biopsy: - Invasive moderately differentiated adenocarcinoma - HER2 equivocal (2+) Comment: HER2 FISH is pending and the results will be reported in an addendum. PG Care Time/CCT Total # of Minutes Spent Total Time Spent with Patient: Total time spent is greater than 50% in coordination of care (as documented) at patient's floor/unit and/or counseling patient: [place] [address] Subseq Hosp Care Lvl 2 Patient Type Established History Expanded Problem Focused Exam Expanded Problem Focused Medical Decision Making Moderate Complexity Diagnoses Esophageal stenosis K22.2 Esophageal dysmotility K22.4 Dementia F03.90 Dementia behavioral disturbance: without behavioral disturbance Dementia type: unspecified type Prostate cancer C61 GERD (gastroesophageal reflux disease) K21.9 CAD (coronary artery disease) I25.10 DVT prophylaxis Z29.9 Esophageal adenocarcinoma C15.9 (1) Dementia Dementia behavioral disturbance: without behavioral disturbance Dementia type: unspecified type Qualified Code(s): F03.90 - Unspecified dementia without behavioral disturbance
[2020-09-30] MEDS: PANTOprazole 40 MG TAB PO SCH (22:47)
[2020-09-30] MEDS: METOPROLOL TARTRATE 25 MG TAB PO SCH ×2 (22:47→22:48)
[2020-10-01] MEDS: ACETAMINOPHEN 500 MG TAB PO PRN (04:07)
[2020-10-01 08:22] LABS: Basophils # (auto) 0.02 K/uL (0-0.2); Basophils % (auto) 0.3 %; Eosinophils # (auto) 0.43 K/uL (0-0.5); Eosinophils % (auto) 5.6 %; Hematocrit (blood only) 27.9 % (42-52); Hemoglobin 9.3 g/dL (14.0-18.0); Immature Granulocytes # (auto) 0.01 K/uL (0.00-0.02); Immature Granulocytes % (auto) 0.1 %; Lymphocytes # (auto) 0.83 K/uL (1.2-3.4); Lymphocytes % (auto) 10.7 %; Mean Corpuscular Hemoglobin 31.2 pg (25-34); Mean Corpuscular Hgb Conc 33.3 g/dL (32-36); Mean Corpuscular Volume 93.6 fL (80-100); Mean Platelet Volume 10.7 fL (7.4-10.4); Monocytes # (auto) 0.68 K/uL (0.11-0.59); Monocytes % (auto) 8.8 %; Neutrophils # (auto) 5.76 K/uL (1.4-6.5); Neutrophils % (auto) 74.5 %; Platelet Count 241 K/uL (130-400); RDW Coefficient of Variation 13.7 % (11.5-14.5); RDW Standard Deviation 47.3 fL (36.4-46.3); Red Blood Count 2.98 M/uL (4.7-6.1); White Blood Count 7.73 K/uL (4.8-10.8)
[2020-10-01 08:48] LABS: BUN Creatinine Ratio 27.3 (10-20); Creatinine Clr Calc Pharmacy 70.4 ml/min; Est GFR (African American) 115.7 ml/min; Est GFR (Non-African American) 99.9 ml/min; Magnesium 1.8 mg/dl (1.8-2.4)
[2020-10-01] MEDS: PANTOprazole 40 MG TAB PO SCH (09:30)
[2020-10-01] MEDS: PIPERACILLIN/TAZOBACTAM 3.375 GM in DEXTROSE 5% 100 ML IV SCH (09:30)
[2020-10-01] MEDS: MEMANTINE HCL 5 MG TAB PO SCH (09:30)
--- NOTE | 2020-10-01 10:30 | Consultation Report ---
REASON FOR CONSULTATION: Esophageal cancer. HISTORY OF PRESENT ILLNESS: The patient is a 80-year-old gentleman who was admitted to [facility] on 09/27/2020 with increased lethargy and decreased oral intake. Apparently, this ge ntleman suffers from dementia and was unable to really extract a lot of helpful information; however, he relates having difficulty with mostly solids, particularly breads and meats over the past several months. Again, apparently he also suffers from dementia, resides with his daughter at the present [facility]. Upon presentation, he underwent a CT scan of the abdomen with findings concerning for fluid-an led distended distal esophagus and multiple hypodense hepatic lesions, which are indeterminate. Appro priately, GI was consulted and EGD was performed including ultrasound revealing a hypoechoic mass in the middle third of the esophagus, lesion being a circumferential, but nonobstructing. Many lymph no verenice were also visualized. The first node measured 9 mm x 5 and a second 10 x 8 mm. By endoscopic loren luation, he is staged T3, N1, MX. Per most recent laboratories this gentleman suffers from a normocy tic, normochromic anemia. The formal biopsy of the esophageal stricture was performed on 09/28/2020 revealing a moderately differentiated invasive adenocarcinoma HER-2/jabari is equivocal with TROY renteria. Primary service is requesting consultation for possible treatment options moving forward. PAST MEDICAL HISTORY: Includes coronary artery disease, gastroesophageal reflux disease, glaucoma, h ypercholesterolemia, history of prostate cancer. PAST SURGICAL HISTORY: Status post coronary artery bypass grafting x4. MEDICATIONS: Prior to admission include Protonix 40 mg p.o. every day, amantadine 5 mg b.i.d., metop rolol 25 mg p.o. every day, atorvastatin 40 mg p.o. every day, aspirin 81 mg p.o. every day. ALLERGIES: No known drug allergies. FAMILY HISTORY: Noncontributory. SOCIAL HISTORY: Patient is a . Resides with family members. Regular consumer of alcohol, no nsmoker. REVIEW OF SYSTEMS: Unobtainable. The patient is oriented to name, disoriented to time and place. PHYSICAL EXAMINATION: GENERAL: Pleasant, conversant 80-year-old gentleman in no acute distress. VITAL SIGNS: Temperature 36.6, pulse 52, respiratory rate 18, blood pressure 149/71. SKIN: Warm, dry, noncyanotic without petechia, rash or ecchymosis. HEENT: Head atraumatic, normocephalic. Eyes: PERRLA, EOMI. Sclerae are nonicteric. No conjunctiv al injection. Nares are patent without rhinorrhea or discharge. Throat is clear. Tongue midline. Mucous membranes are moist. NECK: Supple without JVD or thyromegaly. HEART: Regular rate and rhythm. No clicks, rubs, murmurs or gallops. LUNGS: Clear to auscultation bilaterally. ABDOMEN: Soft, nontender, nondistended, without palpable hepatosplenomegaly. EXTREMITIES: No calf tenderness or swelling. No clubbing, cyanosis or edema. NEUROLOGIC: He is awake and alert. He is not oriented to time or place. IMPRESSION: 1. Adenocarcinoma of the esophagus. 2. Esophageal stenosis. 3. History of prostate cancer. 4. Gastroesophageal reflux disease. 5. History of coronary artery disease. 6. Dementia. PLAN: I was asked to visit with the patient, admitted for progressive dysphagia and poor p.o. intake couple of days ago. He underwent endoscopic ultrasound performed by Dr. Butler from a GI revealing a T3 lesion with a suspicious appearing regional lymph nodes. CT of the abdomen and pelvis suggests multiple hypodense hepatic lesions, which are indeterminate, but certainly plausible this is extensio n of his primary neoplasm. That said, not sure if this gentleman can make appropriate medical decisi ons and we will determine if he has a medical power of pediatric np to discuss options moving forward. F irst and foremost upon discharge and perhaps a PET scan may shed some light on the possibility of hep atic metastatic disease, which would in essence limit patient's options to salvage chemotherapy. We will await FISH confirmation on HER-2/jabari specifically which will impact therapeutic choice moving fo ard. I can offer a little else at this time, but will be happy to reconvene with the patient and hi s family upon discharge. Thank you very much for allowing me to participate in his care. Job ID: [id number]
--- NOTE | 2020-10-01 15:43 | Discharge Summary ---
Date of Service October 01, 2020 Admission HPI Per Admitting Provider 80 M with dementia, lives with daughter, has been with increased lethargy and decreased po intake, in the ER CT chest finds fluid/food filled esophagus with concern for possible esophageal thickening, there is also comments on the CT scan of a possible mildly enlarged gastrohepatic ligament lymph node that measures 1.5 cm. Multiple small hypodense hepatic lesions measure up to 1.1 cm. The spleen, adrenal glands and kidneys are unremarkable as is the pancreas. There is no biliary or pancreatic ductal dilatation. There is no hydronephrosis. Note is made of serpiginous multifocal enhancement within the right gluteus medius muscle. The largest focus measures 4 cm. There is also a 1.2 cm enhancing focus within the left gluteal musculature. The pts daughter notes he had prostate cancer some years ago, but thinks it s all taken care of, he has been having right hip pain, which may correlate with mass Admission Exam Per Admitting Provider The patient appeared well nourished and normally developed. he is demented Vital signs as documented. Head exam is normocephalic atraumatic Neck is without JVD, thyromegaly, or carotid bruits. Lungs are clear to auscultation, no focal loss of breath sounds Cardiac exam, Rhythm is regular.. No murmurs, rubs or gallops. Abdominal exam reveals normal bowel sounds, soft non tender, no masses Extremities are nonedematous and both pedal pulses are present there is no mass able to be palpated to correlate with Ct findings Neurologic exam is alert and oriented, no focal loss of strength or sensation Skin is without bruises or rashes Psychologically is without concerns for anxiety or depression Principal Diagnosis Working diagnoses: 1. 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 S/p esophageal stent 4. Dysphagiaresolved Chronic medical conditions: 1. Prostate CA 2. Dementia 3. CAD 4. Glaucoma 5. GERD Discharge Exam General: Resting comfortably in his hospital bed. Does not appear ill or toxic Cardiac: RRR with 1/6 PIERO Lungs: CTA without W/R/R Abdomen: Normoactive X4. Soft and nontender in all quadrants. Extremities: No peripheral clubbing cyanosis or edema Neuro: Awake. Oriented to self. Not oriented to time or situation. ? oriented to place (was astute enough to look at the wall and see the [facility] logo) cranial nerves II through XII are grossly intact no focal neuro deficits Skin: No obvious skin lesions or rashes Discharge Data Allergies Allergy/AdvReac Type Severity Reaction Status Date / Time No Known Allergies Allergy Verified 09/27/20 14:29 Consultations 09/27/20 15:48 ED Decision to Admit Stat 09/27/20 17:56 Consult Gastroenterology Routine Pt is a 80 y/o male seen for esophageal stenosis, CT chest showed sign of esophageal mass in GE junction concerning for malignancy, lymphadenopathy and hepatic lesions. He is s/p EUS & EGD w esophageal stent placement on 09/29 - Follow esophageal stent compatible diet: liquids x 2 days, puree x 5 days then advance to soft foods (see more details in stent diet handout in pt's chart) - Antibx for suspected aspiration - F/U path per Dr. Burns - Consider outpt Oncology referral - GI to sign off; pls recall prn 09/30/20 12:40 Consult Oncology Routine I was asked to visit with the patient, admitted for progressive dysphagia and poor p.o. intake couple of days ago. He underwent endoscopic ultrasound performed by Dr. Butler from a GI revealing a T3 lesion with a suspicious appearing regional lymph nodes. CT of the abdomen and pelvis suggests multiple hypodense hepatic lesions, which are indeterminate, but certainly plausible this is extension of his primary neoplasm. That said, not sure if this gentleman can make appropriate medical decisions and we will determine if he has a medical power of employee benefits attorney to discuss options moving forward. First and foremost upon discharge and perhaps a PET scan may shed some light on the possibility of hepatic metastatic disease, which would in essence limit patient's options to salvage chemotherapy. We will await FISH confirmation on HER-2/jabari specifically which will impact therapeutic choice moving forward. I can offer a little else at this time, but will be happy to reconvene with the patient and his family upon discharge. Procedures Performed Operation Date: 09/28/20 17:15 Actual Procedures p EGD Biopsy Cytology(Not Applicable) - Sumanth Burns MD Findings: One malignant-appearing, intrinsic severe (stenosis; an endoscope cannot pass) stenosis was found 30 cm from the incisors. The stenosis was not traversed. Biopsies were taken with a cold forceps for histology. Estimated blood loss: none. Food was found in the middle third of the esophagus. attempts were made to suction the debris, which likely built up due to malignant stricture. Impression: - Malignant-appearing esophageal stenosis. Biopsied. - Food in the middle third of the esophagus. Recommendation: - Return patient to hospital walls for ongoing care. - NPO today and tomorrow, strict -plan for EGD with esophageal stent placement and EUS for staging in the OR tomorrow with Dr. Butler -supportive care, IVFs Operation Date: 09/29/20 10:05 Actual Procedures p Upper Endoscopic Ultrasonography esophagogastroduodenoscopy, esophageal stent placement(Not Applicable) - Zhou Butler DO s Esophagogastroduodenoscopy(Not Applicable) - Zhou Butler DO The patient underwent upper endoscopy with endoscopic ultrasound this afternoon for a newly identified esophageal mass. We were unable to pass any of the endoscope through the mass and therefore a limited EUS was performed. It appears the patient has a T3N1 mass likely with metastatic disease based on his CT scan. An esophageal stent was placed through the mass. Recommendations Would suggest empiric antibiotic coverage for total of 7 days as the patient may have aspirated prior to his procedure due to the obstruction Liquid diet today, instructions for advancing the patient's diet will be placed on to his chart Await pathology results via Dr. Burns Outpatient medical oncology referral should be considered Ordered Studies 09/27/20 Femur Xray: IMPRESSION: 1. No acute fracture within the right femur. 2. Mild to moderate right hip osteoarthritis 09/27/20 12:19 CT abd pelvis IV con only Stat IMPRESSION: 1. Small hiatal hernia with fluid-filled distended distal esophagus. Possible wall thickening of the distal esophagus. GI consultation is recommended for consideration for endoscopy to exclude an underlying mucosal lesion. 2. Exam compromised by motion artifact however possible mildly enlarged gastrohepatic ligament lymph node. In addition, multiple small indeterminate hepatic lesions. These findings are nonspecific however are suspicious if distal esophageal lesion identified on endoscopy. 3. Multifocal enhancement within the bilateral gluteal musculature, as described above. These findings are entirely nonspecific and could be neoplastic. A short- term follow-up CT of the pelvis with contrast in one month is recommended. CT head/brain wo con Stat IMPRESSION: 1. No acute intracranial findings. No change in appearance of the brain. 2. Stable ventricular dilatation. This is likely due to atrophy. Normal pressure hydrocephalus is considered less likely. 09/28/20 16:38 CT chest diagnostic w con Routine IMPRESSION: 1. Again seen are findings suspicious for an esophageal mass lesion just above the gastroesophageal junction. Correlate with endoscopy results. 2. There is a mildly enlarged inferior mediastinal lymph node as well as a centrally necrotic upper abdominal lymph node which are unchanged and suspicious for bhumi metastatic disease. 3. There are at least 5 indeterminate low-attenuation hepatic lesions. Metastati c disease is not excluded. 4. There is no evidence of pulmonary metastatic disease. 5. Findings suggest esophagitis. 6. The esophagus is distended and filled with fluid/debris to the level of the thoracic inlet. Note that this may place the patient at risk for aspiration. 7. Cardiomegaly and trace pleural effusions. 8. Mild patchy groundglass opacities are seen in the right upper lobe. Correlate clinically for evidence of a mild infectious/inflammatory pneumonitis. 9. Additional findings as above. CXR 09/27/20 IMPRESSION: No acute cardiopulmonary findings. Hospital Course (1) Esophageal adenocarcinoma: * This was discussed with daughter * cause of malignant strictures/p esophageal stenting * Patient to remain on a. Diet X 5 days and then advance to mechanical soft. Has been tolerating clear liquids the past 2 days. * Lengthy discussion with daughter and patient regarding concern for limited treatment options given his advanced age and advanced dementia. In addition, given malignancylikely to have reoccurring esophageal stenosis with dysmotility. Patient has been seen by oncology who will plan for outpatient PET scan for staging and come up with the best treatment option based on that. There does seem to be concern for metastatic disease involving the liver and perhaps lymph nodes in the mediastinum and upper abdomen (2) Esophageal stenosis: * malignant stricture s/p esophageal stenting by GI * GI with concerns for periprocedural aspiration--> on zosyn empirically. Transitioned to Augmentin * Patient remained hemodynamically stable, afebrile, and did not require any supplemental oxygen * Per GI, liquids only X 2 days (for which patient has tolerated), then. Pured food X 5 days, then mechanical soft. speech therapy consulted to ensure patient able to maintain these dietary restrictions. * pathology consistent with adenocarcinoma- see above * Maintain aspiration precautions * Continue PPI therapy to decrease risk of aspiration (3) Esophageal dysmotility: * See above (4) Dementia: * Resume Namenda * patient has not had increased behaviors/agitation. Haldol on board as needed (not utilized) * Patient was residing at home in an independent apartment above his daughter. She works during the day and patient has been having issues with wandering. He is being discharged to [facility]. (5) Prostate cancer: * extent is unknown, there is some comment on CT of gluteal muscle ? mass * ? warrant PET with newly dx adenocarcinoma of the esophagus as well. Consult Dr. Barahona. Appreciate recommendations (6) GERD (gastroesophageal reflux disease): * Continue PPI therapy (7) CAD (coronary artery disease): * Resume metoprolol * Resume aspirin/statin upon discharge (8) DVT prophylaxis: SCDs for DVT prevention was utilized -From a medical standpoint, patient is hemodynamically stable for discharge -Discharge to [facility] -Follow-up with oncology as an outpatient for PET scan and staging of his malignancy -Plan of care has been discussed with patient; however, given his dementia not sure that he understands) and with daughter who vocalizes understanding -Plan of care has been discussed with and patient has been seen by Dr. Gonzales who is agreeable for discharge today Total Time Total Time Spent Total Time Spent (In Minutes): 60 minutes including time spent with patient and calling daughter in addition to discussion with oncology and Dr. Gonzales Discharge Plan Discharge Items Patient Disposition: Personal Skilled Nursing Reason For Visit: DYSPHAGIA, GLUTEAL MUSCLE MASS Discharge Diagnosis: 1. Esophageal Adenocarcimona 2. Esophageal Stricture (due to Malignant Meoplasm) 3. Dementia Activity: Resume your previous activity Non-emergency contact: Primary Care Provider, Senior Mechanical Technician and Oncologist Call non-emergency contact if: you have any medication questions and your symptoms worsen Follow-up/Referrals: Esau Barahona DO [Physician] - Jontahon Jain DO [Primary Care Provider] - 10/07/20 9:15 am Sumanth Burns MD [Physician] - Diet: Other - See Diet Comment Diet Comment: pureed diet x 5 days then mechanical soft Addtl Attending Provider Instructions: - Patient to remain on a Pureed Diet x 5 days and then Advance to a Mechanical Soft diet - Diagnosis of Esophageal Adenocarcinoma during this hospitalization (causing stricture/trouble swallowing) - Esophageal Stent Placed, Will need FU with GI - Follow up with Dr. Barahona for staging of adenocarcinoma - take all medications as outlined -- note the addition of thiamine 100mg twice a day for 10 days for additional nutritional support - follow up with PCP:7-10 days - return to the ED for new or worsening symptoms Pending Studies at Discharge: No Stand-Alone Forms: My [facility] Skilled Items Patient informed of condition?: Yes DNR: No Discharge Level of Care: Other Communicable Disease: No Discharge Prognosis: Other Lines: None Urinary Catheter: No Medications and DC Order Prescriptions: New pantoprazole 40 mg Tablet,Delayed Release (Dr/Ec) 40 mg PO BID Qty: 60 RF: 0 amoxicillin-pot clavulanate [Augmentin] 875-125 mg tablet 1 tab PO Q12H Qty: 11 RF: 0 thiamine HCl (vitamin B1) 100 mg tablet 100 mg PO BID Qty: 20 RF: 0 Continued metoprolol tartrate 25 mg tablet 25 mg PO PM RF: 0 atorvastatin 40 mg tablet 40 mg PO PM RF: 0 aspirin 81 mg tablet,chewable 81 mg PO PM RF: 0 memantine 5 mg tablet 5 mg PO BID RF: 0 Discontinued pantoprazole 40 mg tablet,delayed release (DR/EC) 40 mg PO QAM RF: 0 No Action Gaviscon Extra Strength 254-237.5 mg/5 mL suspension 5 ml PO QID PRN (Reason: dyspepsia) Qty: 355 RF: 5 trazodone 50 mg tablet 50 mg PO DAILY Qty: 30 RF: 2 diclofenac sodium 1 % gel 4 g topical QID PRN (Reason: R hip pain) Qty: 100 RF: 2 Discharge Orders: Discharge Order (Routine); Ordered 10/01/20 Ordered By: Trista Salinas/Other Patient Handouts: Cancer Esophagus Dc Admission Data Admit Date/Time: 09/27/20 15:53 Attending Provider: Kalin Gonzales Admit Provider: Christian Tidwell Primary Care Provider: Jonathon Jain Other Providers: Christian Tidwell ; Sumanth Burns ; Esau Barahona V. Other Interventions: Discharge Summary Assessment (RN) Last Done: 10/01/20 13:41 Supervising Physician Co-Signing Physician Notes Patient seen and examined on the day of discharge. I agree with the discharge summary by Trista CERVANTES. I have reviewed the chart including labs, imaging and plans for discharge. Esophageal adenocarcinoma esophageal stent placed, advance diet slowly, at risk for migration plan for outpatient PET scan, follow up with oncology very grave prognosis, signs of metastatic disease in liver already discharge to [facility] Coding Level of Care Code Established Pt D/C DAY MANAGEMENT >30 MINS Patient Type Established Diagnoses Esophageal adenocarcinoma C15.9 Esophageal stenosis K22.2 Esophageal dysmotility K22.4 Dementia F03.90 Dementia behavioral disturbance: without behavioral disturbance Dementia type: unspecified type Prostate cancer C61 GERD (gastroesophageal reflux disease) K21.9 CAD (coronary artery disease) I25.10 DVT prophylaxis Z29.9 Time Spent (min) 60
== END 2020-10-01 15:10 | disposition home or self-care (01) | DRG 375 ==
LOC: ED 11:22 → 3N 15:53 → SUATTDRO 15:53 → 3N 17:15 → 2S 09-29 15:08 → 2W 09-30 12:46